=== PATIENT | female | born 1965 | race Caucasian/White ===

== ENCOUNTER 2017-12-12 22:03 | Inpatient (IN) ==
[2017-12-12] MEDS ORDERED: MethylPREDNISolone Sod Succinate Inj 125 MG/2 ML Vial IV.PUSH ONE (22:23)
[2017-12-12 22:39] LABS: Baso # (Auto) 0.2 th/mm3 (0.0-0.2); Baso % (Auto) 1.2 % (0.0-2.0); Eos % (Auto) 0.1 % (0.0-4.0); Hematocrit 38.9 % (35.0-46.0); Hemoglobin 12.6 gm/dL (11.6-15.3); Lymph # (Auto) 1.4 th/mm3 (1.0-4.8); Mean Corpuscular HGB Conc 32.3 % (32.0-36.0); Mean Corpuscular Hemoglobin 25.6 pg (27.0-34.0); Mean Corpuscular Volume 79.1 fL (80.0-100.0); Mean Platelet Volume 10.2 fL (7.0-11.0); Mono # (Auto) 0.7 th/mm3 (0.0-0.9); Mono % (Auto) 4.5 % (0.0-8.0); Neut # (Auto) 13.1 th/mm3 (1.8-7.7); Neut % (Auto) 85.2 % (16.0-70.0); Platelet Count 231 th/mm3 (150-450); Red Blood Count 4.92 mil/mm3 (4.00-5.30); Red Cell Distribution Width 18.6 % (11.6-17.2); White Blood Count 15.4 th/mm3 (4.0-11.0)
--- NOTE | 2017-12-12 22:42 | XR ---
EXAM DATE: 12/12/2017 10:35 PM EDT AGE/SEX: 52 years / Female INDICATIONS: Short of breath. CLINICAL DATA: This is the patient's initial encounter. Patient reports that signs and symptoms have been present for 1 day and indicates a pain score of 0/10. MEDICAL/SURGICAL HISTORY: None. None. COMPARISON: No prior exams available for comparison. FINDINGS: The lungs are clear without infiltrate, nodule, or mass. There is no appreciable pleural effusion for technique. Heart and mediastinum are unremarkable. CONCLUSION: No acute cardiopulmonary disease. Electronically signed by: Hermilo Dutton MD 12/12/2017 10:40 PM EDT
[2017-12-12 22:45] LABS: Chloride 110 meq/L (98-107); Potassium 3.7 meq/L (3.5-5.1); Sodium 142 meq/L (136-145)
[2017-12-12 22:48] LABS: Calcium 8.5 mg/dL (8.5-10.1)
[2017-12-12 22:49] LABS: Albumin 3.9 g/dL (3.4-5.0); Anion Gap 8 meq/L (5-15); Blood Urea Nitrogen 12 mg/dL (7-18); Carbon Dioxide 23.8 meq/L (21.0-32.0); Glucose,Random 102 mg/dL (74-106)
[2017-12-12 22:52] LABS: Alanine Aminotransferase 17 U/L (10-53); Aspartate Aminotransferase 17 U/L (15-37); Glomerular Filtration Rate 80 mL/min (>89)
[2017-12-12 22:54] LABS: Total Protein 7.7 g/dL (6.4-8.2)
[2017-12-12 22:55] LABS: Alkaline Phosphatase 104 U/L (45-117)
--- NOTE | 2017-12-12 22:57 | ED ---
HPI General Chief Complaint: Respiratory Symptoms Stated Complaint: SOB Time Seen by Provider: 12/12/17 22:23 Source: patient Mode of arrival: ambulatory Limitations: no limitations History of Present Illness MD Complaint: shortness of breath Onset (ago): minute(s) Severity: severe Consistency/Duration: constant Relieving factors: nothing Exacerbating factors: nothing Known history of: COPD Associated symptoms: fever, cough and sputum production Treatment prior to arrival: bronchodilator (neb given at Urgent Care this evening. good relief. symptoms recurred and were acutely worse just [employer].) Related Data Home oxygen amount: none Home Medications Medication Instructions Recorded Confirmed albuterol sulfate [Ventolin HFA] 2 puff INHALATION Q4-6H PRN 12/12/17 12/12/17 alendronate 70 mg PO QWEEK 12/12/17 12/12/17 alprazolam [Xanax] 2 mg PO BID 12/12/17 12/12/17 aspirin 81 mg PO DAILY 12/12/17 12/12/17 bisoprolol-hydrochlorothiazide 1 tab PO DAILY 12/12/17 12/12/17 [Ziac] cetirizine [Zyrtec] 5 mg PO DAILY 12/12/17 12/12/17 estropipate 1.5 mg PO DAILY 12/12/17 12/12/17 furosemide 40 mg PO DAILY 12/12/17 12/12/17 hydroxyzine HCl 25 mg PO QID PRN 12/12/17 12/12/17 meloxicam 15 mg PO DAILY 12/12/17 12/12/17 potassium chloride 20 meq PO DAILY 12/12/17 12/12/17 quetiapine [Seroquel] 300 mg PO BID 12/12/17 12/12/17 Allergies Allergy/AdvReac Type Severity Reaction Status Date / Time cephalexin [From Keflex] Allergy Rash, Verified 12/12/17 22:15 Generalized oxcarbazepine Allergy Itching Verified 12/12/17 22:15 [From Trileptal] codeine AdvReac Hallucinati Verified 12/12/17 22:15 ons oxycodone [From Percocet] AdvReac Nausea/Vomi Verified 12/12/17 22:15 ting propoxyphene AdvReac Nausea/Vomi Verified 12/12/17 22:15 [From Darvocet-N] ting Review of Systems ROS: all other systems reviewed are negative [facility] Medical History Medical History Anxiety (Acute) Bipolar 1 disorder (Acute) Depression (Acute) Dissociative identity disorder (Acute) Fibromyalgia (Acute) Frequent headaches (Acute) H/O: hysterectomy (Acute) Hypertension (Acute) Hypokalemia (Acute) PTSD (post-traumatic stress disorder) (Acute) Polycythemia vera (Acute) Surgical History Surgical History History of appendectomy (Acute) History of breast implant (Acute) Hx of tonsillectomy (Acute) Social History Social History Substance History: No History of Abuse Smoking Status: Current every day smoker Tobacco Type: Cigarettes How Often Do You Have a Drink Containing Alcohol: Never Recent Travel in [facility] within the Last 8 Weeks: No Recent Out of Country Travel within the Last 8 Weeks: No Immunization History Tetanus Immunization: >5 Years Hx Influenza Vaccine This Season: No Exam Const General: cooperative, healthy appearing, well developed, well groomed and acute distress Orientation: alert, awake and oriented x3 HENMT Head: normal to inspection, normocephalic and atraumatic Eyes Alignment and Position: alignment normal Conjunctivae: conjunctivae normal Sclera: sclerae normal EOM: EOM intact bilaterally Neck Neck: normal visual inspection and full ROM Chest Chest: abnormal inspection of the chest (Use of accessory muscles) Resp Effort & Inspection: labored (Able to speak 1-2 syllables between breaths) Auscultation: clear to auscultation bilaterally, diminished lung sounds and wheezes Cardio Rate: regular rate Rhythm: regular rhythm GI Inspection: normal to inspection Palpation: soft Back/Spine/Pelvis Cervical Spine: cervical ROM normal Thoracic/Lumbar Spine: thoraco-lumbar ROM normal Skin General: no rashes or lesions noted and turgor normal Neuro General: alert, awake, oriented x3, moves all extremities and CN's II-XI intact bilaterally Extrem General: normal to inspection and full ROM Psych Appearance: grossly normal Mental Status: mental status grossly normal Speech and Movement: speech and movement normal Mood: congruent mood Affect: normal affect Attitude: cooperative Thought Process: normal Thought Content: normal Judgment: judgment good Course Hospital Course: Patient is markedly improved following neb treatments and Solu-Medrol. However , she still has an oxygen requirement. She is currently on 5 L cannula with an oxygen saturation of 90%. She is not having any respiratory distress at this time. The results of her CT have been discussed with her. She has had a previous rash with Keflex. I will give her Rocephin and watch her for rash. She has also been given Zithromax. Consultations Consultation #1: Dr. More Time: 00:59 Initial Documented Vital Signs Temperature 98.5 F 12/12/17 22:18 Pulse Rate 112 H 12/12/17 22:18 Respiratory Rate 27 H 12/12/17 22:18 Blood Pressure 166/79 H 12/12/17 22:18 Pulse Oximetry 82 L 12/12/17 22:18 Last Documented Vital Signs Temperature 98.7 F 12/13/17 00:00 Pulse Rate 113 H 12/13/17 00:00 Respiratory Rate 25 H 12/13/17 00:00 Blood Pressure 152/84 H 12/13/17 00:00 Pulse Oximetry 90 L 12/13/17 00:00 Critical Care Time Critical Care Time: Yes Total Critical Care Time: 45 Attestation: Time to perform other separately billable procedures was not included in the critical care time. My time did not include minutes spent treating any other patients simultaneously or on activities that did not directly contribute to the patient's treatment. The services I provided to this patient were to treat and/or prevent clinically significant deterioration due to respiratory distress, dyspnea with hypoxia I provided critical care services requiring my management, as noted below: Chart data review, documentation time, medication orders and management, vital sign assessments/reviewing monitor data, ordering and reviewing lab tests, ordering and interpreting/reviewing x-rays and diagnostic studies, care of the patient and discussion of the patient with the admitting physicians Medical Decision Making MDM Narrative Medical decision making narrative: This patient presents ambulatory with the chief complaint of acute dyspnea. She states that she started feeling ill allergy type symptoms. Her symptoms were worse today prompting her to go to the urgent care center for treatment. She reports that she was given a nebulizer treatment and encouraged to come to the emergency department for further treatment. She states she felt much better so she went home. However, her symptoms became acutely worse and much more severe just prior to presentation. On initial presentation, this patient was in respiratory distress. She was immediately given duo nebs 3. She has been placed on supplemental oxygen. She reports that she is much better now. Dyspnea workup is in process including a d-dimer and BNP. She has been given Solu-Medrol. Medical Screen Exam Complete: Yes Emergency Medical Condition: Yes Differential Diagnosis Differential Diagnosis: Differential diagnosis of dyspnea includes but is not limited to congestive heart failure, pneumonia, wheezing, pneumothorax, pulmonary embolism Medical Records Medical records reviewed: Yes I reviewed the patient's medical records. Underlying medical problems include hypertension, polycythemia vera, psychiatric issues and a new diagnosis of COPD Lab Data Lab results reviewed: Yes I reviewed the patient's lab results. Result diagrams: 12/12/17 22:27 12/12/17 22:27 Lab Results 12/12/17 12/12/17 12/12/17 Range/Units 22:27 22:27 22:27 CBC w Diff Auto diff final WBC 15.4 H (4.0-11.0) th/mm3 RBC 4.92 (4.00-5.30) mil/mm3 Hgb 12.6 (11.6-15.3) gm/dL Hct 38.9 (35.0-46.0) % MCV 79.1 L (80.0-100.0) fL MCH 25.6 L (27.0-34.0) pg MCHC 32.3 (32.0-36.0) % RDW 18.6 H (11.6-17.2) % Plt Count 231 (150-450) th/mm3 MPV 10.2 (7.0-11.0) fL Neut % (Auto) 85.2 H (16.0-70.0) % Lymph % (Auto) 9.0 (9.0-44.0) % [place] % (Auto) 4.5 (0.0-8.0) % Eos % (Auto) 0.1 (0.0-4.0) % Baso % (Auto) 1.2 (0.0-2.0) % Neut # (Auto) 13.1 H (1.8-7.7) th/mm3 Lymph # (Auto) 1.4 (1.0-4.8) th/mm3 [place] # (Auto) 0.7 (0.0-0.9) th/mm3 Eos # (Auto) 0.0 (0.0-0.4) th/mm3 Baso # (Auto) 0.2 (0.0-0.2) th/mm3 WBC Differential . Differential Comment . D-Dimer Quant (PE/DVT) 0.52 H (0.00-0.50) mg/L FEU Sodium 142 (136-145) meq/L Potassium 3.7 (3.5-5.1) meq/L Chloride 110 H (98-107) meq/L Carbon Dioxide 23.8 (21.0-32.0) meq/L Anion Gap 8 (5-15) meq/L BUN 12 (7-18) mg/dL Creatinine 0.76 (0.50-1.00) mg/dL Estimated GFR 80 L (>89) mL/min Random Glucose 102 (74-106) mg/dL Calcium 8.5 (8.5-10.1) mg/dL Total Bilirubin 0.3 (0.2-1.0) mg/dL AST 17 (15-37) U/L ALT 17 (10-53) U/L Alkaline Phosphatase 104 (45-117) U/L Troponin I Less than 0.02 L (0.02-0.05) ng/mL B-Natriuretic Peptide (0-100) pg/mL Total Protein 7.7 (6.4-8.2) g/dL Albumin 3.9 (3.4-5.0) g/dL 12/12/17 Range/Units 22:27 CBC w Diff WBC (4.0-11.0) th/mm3 RBC (4.00-5.30) mil/mm3 Hgb (11.6-15.3) gm/dL Hct (35.0-46.0) % MCV (80.0-100.0) fL MCH (27.0-34.0) pg MCHC (32.0-36.0) % RDW (11.6-17.2) % Plt Count (150-450) th/mm3 MPV (7.0-11.0) fL Neut % (Auto) (16.0-70.0) % Lymph % (Auto) (9.0-44.0) % [place] % (Auto) (0.0-8.0) % Eos % (Auto) (0.0-4.0) % Baso % (Auto) (0.0-2.0) % Neut # (Auto) (1.8-7.7) th/mm3 Lymph # (Auto) (1.0-4.8) th/mm3 [place] # (Auto) (0.0-0.9) th/mm3 Eos # (Auto) (0.0-0.4) th/mm3 Baso # (Auto) (0.0-0.2) th/mm3 WBC Differential Differential Comment D-Dimer Quant (PE/DVT) (0.00-0.50) mg/L FEU Sodium (136-145) meq/L Potassium (3.5-5.1) meq/L Chloride (98-107) meq/L Carbon Dioxide (21.0-32.0) meq/L Anion Gap (5-15) meq/L BUN (7-18) mg/dL Creatinine (0.50-1.00) mg/dL Estimated GFR (>89) mL/min Random Glucose (74-106) mg/dL Calcium (8.5-10.1) mg/dL Total Bilirubin (0.2-1.0) mg/dL AST (15-37) U/L ALT (10-53) U/L Alkaline Phosphatase (45-117) U/L Troponin I (0.02-0.05) ng/mL B-Natriuretic Peptide 50 (0-100) pg/mL Total Protein (6.4-8.2) g/dL Albumin (3.4-5.0) g/dL Imaging Data Attestation: I personally reviewed and interpreted this imaging study as follows : My impression: Clear lungs Radiologist's impression: Chest X-Ray 12/12/17 22:23 CONCLUSION: No acute cardiopulmonary disease. Chest CTA 12/12/17 23:19 CONCLUSION: 1. No pulmonary embolus. 2. Patchy pneumonia as described, largest and most conspicuous in the right middle lobe. 3. Mild to moderate emphysema. ECG Data EKG Prior to Arrival: No Attestation: I personally reviewed and interpreted this ECG as follows: (EKG shows sinus tachycardia at 104. No acute STT wave changes.) Discharge Plan Discharge Disposition Patient Disposition: 30 Still Patient Discharge Details Diagnosis: Acute respiratory distress, Pneumonia Physicians Team ED Provider: Mohini Carey Primary Care Provider: Emeka Ramos Rxs /Orders / Referrals /Forms Prescriptions: No Action furosemide 40 mg Tablet 40 mg PO DAILY RF: 0 quetiapine [Seroquel] 300 mg Tablet 300 mg PO BID RF: 0 cetirizine [Zyrtec] 10 mg Tablet 5 mg PO DAILY RF: 0 meloxicam 15 mg Tablet 15 mg PO DAILY RF: 0 alendronate 70 mg Tablet 70 mg PO QWEEK RF: 0 estropipate 0.75 mg Tablet 1.5 mg PO DAILY RF: 0 bisoprolol-hydrochlorothiazide [Ziac] 2.5-6.25 mg Tablet 1 tab PO DAILY RF: 0 aspirin 81 mg Tablet,Chewable 81 mg PO DAILY RF: 0 hydroxyzine HCl 25 mg Tablet 25 mg PO QID PRN (Reason: Anxiety) RF: 0 alprazolam [Xanax] 2 mg Tablet 2 mg PO BID RF: 0 albuterol sulfate [Ventolin HFA] 90 mcg/actuation Hfa Aerosol Inhaler 2 puff INHALATION Q4-6H PRN (Reason: Shortness Of Breath) RF: 0 potassium chloride 20 mEq Tablet Extended Release 20 meq PO DAILY RF: 0 Status ED Status: Pending Admission
[2017-12-12] MEDS ORDERED: Azithromycin Inj 500 MG in Sodium Chlor 0.9% Inj 250 ML IV.SIG ONE (23:17)
--- NOTE | 2017-12-12 23:59 | CT ---
EXAM DATE: 12/12/2017 11:48 PM EDT AGE/SEX: 52 years / Female INDICATIONS: Chest pain, shortness of breath. CLINICAL DATA: This is the patient's initial encounter. Patient reports that signs and symptoms have been present for 1 day and indicates a pain score of 4/10. MEDICAL/SURGICAL HISTORY: Hypertension. Breast augmentation. Tonsillectomy. RADIATION DOSE: 11.78 CTDI (mGy) COMPARISON: POI, CT CHEST W/O CONTRAST, 10/20/2017. . TECHNIQUE: Volumetric scanning was performed using a multi-row detector CT scanner during bolus infu hussein of 74 ml Omnipaque 350 (iohexol) nonionic water-soluble contrast as a single exam dose. The timo a was post processed with a variety of visualization algorithms including full volume maximum intensi ty projection and sliding thin slab reformation. Using automated exposure control and adjustment of the mA and/or kV according to patient size, radiation dose was kept as low as reasonably achievable t o obtain optimal diagnostic quality images. DICOM format image data is available electronically for review and comparison. FINDINGS: No pulmonary embolus is demonstrated. An approximately 4 cm area of focal parenchymal consolidation is seen in the right middle lung. Simil ar but smaller/milder findings are seen in the lingular division of the left upper lobe. Widely scatt ered sub-4 mm bilateral pulmonary nodules are unchanged. Mild dependent atelectasis of both bases. Th ere is mild to moderate emphysema. No pleural effusion or pneumothorax. Heart size stable, within normal limits. Scattered subcentimeter subcarinal and AP window mediastinal lymph nodes. Nothing clearly pathologic. CONCLUSION: 1. No pulmonary embolus. 2. Patchy pneumonia as described, largest and most conspicuous in the right middle lobe. 3. Mild to moderate emphysema. Electronically signed by: Lake Cullen MD 12/12/2017 11:57 PM EDT
[2017-12-13] MEDS ORDERED: Bisacodyl 10 MG Supp RECTAL PRN (00:57)
[2017-12-13] MEDS ORDERED: Acetaminophen 325 MG Tablet PO PRN (00:57)
[2017-12-13] MEDS ORDERED: MethylPREDNISolone Sod Succinate Inj 40 MG/ML Vial IV.PUSH SCH (05:00)
[2017-12-13 06:49] LABS: ABG Base Excess -1.9 mmol/L (-2-2); ABG PCO2 39 mmHg (38-42); ABG PO2 52 mmHg (61-120)
[2017-12-13] MEDS ORDERED: Vancomycin Consult Pharmacy OTHER PRN (07:21)
[2017-12-13] MEDS ORDERED: Magnesium Oxide 400 MG Tablet PO PRN (07:24)
[2017-12-13] MEDS ORDERED: Potassium Chloride 25 MEQ Effervescent Tablet PO PRN (07:24)
[2017-12-13] MEDS ORDERED: Dextrose 50% in Water 50 ML Vial IV.PUSH PRN (07:24)
[2017-12-13] MEDS ORDERED: Potassium Chlor 40 mEq Premix 40 MEQ/100 ML PIGGYBACK IV.SIG PRN ×2 (07:24)
[2017-12-13] MEDS ORDERED: Magnesium Sulfate Inj 4 GM in Sodium Chlor 0.9% Inj 92 ML IV.SIG PRN (07:24)
[2017-12-13] MEDS ORDERED: Magnesium Sulfate Inj 2 GM in Sodium Chlor 0.9% Inj 96 ML IV.SIG PRN (07:24)
[2017-12-13] MEDS ORDERED: Sodium Phosphate Inj 30 MMOL in Sodium Chlor 0.9% Inj 250 ML IV.SIG PRN (07:24)
[2017-12-13] MEDS ORDERED: Potassium Chlor 20 mEq Premix 20 MEQ/100 ML PIGGYBACK IV.SIG PRN ×2 (07:24)
[2017-12-13] MEDS ORDERED: Potassium Phosphate Inj 30 MMOL in Sodium Chlor 0.9% Inj 250 ML IV.SIG PRN (07:24)
[2017-12-13] MEDS ORDERED: Potassium Phosphate 500 MG Soluble Tablet PO PRN ×2 (07:24)
--- NOTE | 2017-12-13 07:37 | P.CONCC ---
History of Present Illness Service: Critical care medicine Consult date: 12/13/17 Requesting Physician: Jamilah More Reason for Consult: Respiratory failure, acute Primary Care Provider: Emeka Rmaos MD Family Provider: Emeka Ramos MD Chief Complaint: Shortness of breath History of Present Illness: This is a 52-year-old female. Date of admission 12/12/2017. Date of consultation 12/13/2017. Past medical history includes COPD, asthma which he describes as seasonal allergies, bipolar disorder, posttraumatic stress disorder , depression, fibromyalgia, hypertension, hyperlipidemia, osteoporosis and chronic benzodiazepine use. She also has polycythemia vera she is also on hormone replacement therapy. Patient originally presented to urgent care yesterday for shortness of breath. She received aerosolized therapy improved and went home. She presented to [facility] of late or last night with worsening symptoms of dyspnea, shortness of breath. In the ED, patient's received chest x-ray and received multiple bronchodilator therapy and intravenous methylprednisolone succinate. At that time, patient was on 5 L nasal cannula with an oxygen saturation of 90%. She is not having any respiratory distress at this time. She received a CT pulmonary, due to an abnormal d-dimer. Pneumonia was noted in the right middle lobe and lingula on the left side. She received ceftriaxone and azithromycin. She was admitted to the hospital service. Again, CT pulmonary angiogram revealed no central pulmonary rales. Small bilateral pulmonary nodules. Infiltrates by the left upper lobe/lingula and right middle lobe. She was treated with bronchodilator therapy. Overnight, transition from 5 L nasal cannula to 100% nonrebreather was transferred to the ICU. I evaluate the patient at that time in room 8401. She is currently awake alert and oriented 3. Will attempt aggressive albuterol aerosol therapies in place on BiPAP short-term. Pulmonology will be consulted. She states she does not have a director [place]. Review of Systems Constitutional: Reports body ache(s), Reports chills, Reports excessive sweating , Reports fatigue, Reports fever(s), Reports headache(s), Reports lack of energy , Reports malaise, Reports night sweats, Denies anorexia, Denies daytime sleepiness, Denies weight gain, Denies weight loss Eyes: Denies blind spots, Denies blurry vision Ears, Nose, Mouth, and Throat: Reports bad breath, Reports dry mouth, Reports nasal congestion, Denies abnormal hearing, Denies bleeding gums Cardiovascular: Reports shortness of breath, Reports shortness of breath with activity, Reports shortness of breath when lying down, Denies chest pain, Denies chest pain at rest Respiratory: Reports change in phlegm color, Reports chest congestion, Reports cough, Reports shortness of breath, Reports shortness of breath with activity, Denies coughing up blood Gastrointestinal: Denies abdominal pain, Denies loose stools, Denies nausea, Denies vomiting blood Genitourinary: Denies dribbling after urination Musculoskeletal: Denies abnormal walking, Denies back pain Skin/Breast: Denies acne, Denies bleeding lesions, Denies boil Neurologic: Denies abnormal hearing, Denies convulsions Psychiatric: Reports anxiety, Reports depression, Denies confusion Endocrine: Reports cold intolerance, Reports excessive sweating Hematologic/Lymphatic: Denies easy bleeding Allergic/Immunologic: Reports GI upset with certain foods, Reports seasonal runny nose PMFSH - History History Provided By: Patient - Medical History Medical History: Medical History (Last Updated 12/13/17 @ 07:35 by Irja Hernandez MD) Anxiety Asthma Bipolar 1 disorder Depression Dissociative identity disorder Emphysema lung Fibromyalgia Frequent headaches History of benzodiazepine use Hormone replacement therapy (HRT) Hypertension Hypokalemia Osteoporosis PTSD (post-traumatic stress disorder) Polycythemia vera Pulmonary nodule - Surgical History Surgical History: Surgical History (Last Reviewed 12/13/17 @ 07:32 by Iraj Hernandez MD) H/O: hysterectomy History of appendectomy History of breast implant Hx of tonsillectomy - Family History Family History: Family History (Last Updated 12/13/17 @ 07:33 by Iraj Hernandez MD) Other Family history non-contributory - Social History I have reviewed the patient's Social History: Yes - Tobacco History Second Hand Smoke Exposure: No Tobacco Use In Past 30 Days: No Smoking Status: Former smoker Tobacco Type: Cigarettes - Alcohol History How Often Do You Have a Drink Containing Alcohol: Monthly or less - Substance Use History Substance History: No History of Abuse - Travel History Recent Travel in the [place] Within the Last 8 Weeks: No Recent Travel Out of the Country Within the Last 8 Weeks: No - Immunization History Tetanus Immunization: >5 Years Hx Influenza Vaccine This Season: No Medications and Allergies Active Medications: Active Medications Acetaminophen (Tylenol) 650 mg PO Q4H PRN PRN Reason: Temp > 100.4 Al Hydroxide/Mg Hydroxide (Milk Of Jenn Cardoza) 30 ml PO Q12H PRN PRN Reason: Mild Constipation Albuterol (Albuterol Neb (Prn)) 2.5 mg NEB Q2HR NEB PRN PRN Reason: SHORTNESS OF BREATH/WHEEZING Albuterol (Duoneb Neb (Prn)) 1 ampul NEB Q4HR NEB WARNER Alprazolam (Xanax) 2 mg PO BID WARNER Aspirin (Aspirin Chew) 81 mg PO DAILY WARNER Bisacodyl (Dulcolax Supp) 10 mg RECTAL DAILY PRN PRN Reason: SEVERE CONSITIPATION Budesonide/Formoterol Fumarate (Symbicort 160/4.5 Mcg Inh) 2 puff INH BID WARNER Chlorhexidine Gluconate (Chlorhexidine 2% Cloth) 3 pack TOPICAL DAILY@0400 WARNER Stop: 12/19/17 03:59 Chlorhexidine Gluconate (Chlorhexidine 2% Cloth) 3 pack TOPICAL DAILY@0400 PRN PRN Reason: Extra cloth needed Stop: 12/19/17 03:59 Furosemide (Lasix) 40 mg PO DAILY WARNER Guaifenesin (Mucinex Er) 600 mg PO BID WARNER Heparin Sodium (Porcine) (Heparin Inj) 5,000 units SQ Q12H WARNER Levofloxacin/Dextrose (Levaquin 750 Mg Premix Inj) 150 mls @ 100 mls/hr IV.SIG Q24H WARNER Aztreonam 2 gm/ Sodium (Chloride) 100 mls @ 200 mls/hr IV.SIG Q8H WARNER Magnesium Sulfate 4 gm/ Sodium (Chloride) 100 mls @ 50 mls/hr IV.SIG UNSCH PRN PRN Reason: For Magnesium 0.9 - 1.1 mg/dL Magnesium Sulfate 2 gm/ Sodium (Chloride) 100 mls @ 50 mls/hr IV.SIG UNSCH PRN PRN Reason: For Magnesium 1.2 - 1.6 mg/dL Potassium Chloride (Kcl 40 Meq Premix Inj) 40 meq in 100 mls @ 25 mls/hr IV.SIG Q2H PRN PRN Reason: For Potassium 2.8 - 3.2 mEq/L Potassium Chloride (Kcl 20 Meq Premix Inj) 20 meq in 100 mls @ 50 mls/hr IV.SIG Q2H PRN PRN Reason: For Potassium 3.3 - 3.5 mEq/L Potassium Chloride (Kcl 40 Meq Premix Inj) 40 meq in 100 mls @ 25 mls/hr IV.SIG UNSCH PRN PRN Reason: For Potassium 3.3 - 3.5 mEq/L Potassium Chloride (Kcl 20 Meq Premix Inj) 20 meq in 100 mls @ 50 mls/hr IV.SIG Q2H PRN PRN Reason: For Potassium 2.8 - 3.2 mEq/L Potassium Phosphate 30 mmol/ (Sodium Chloride) 260 mls @ 42 mls/hr IV.SIG UNSCH PRN PRN Reason: SEE LABEL COMMENTS Sodium Phosphate 30 mmol/ (Sodium Chloride) 260 mls @ 42 mls/hr IV.SIG UNSCH PRN PRN Reason: For Phosphorus < 2.5 mg/dL Lactulose (Lactulose Liq) 30 ml PO DAILY PRN PRN Reason: SEVERE CONSITIPATION Magnesium Oxide (Mag-Ox) 800 mg PO UNSCH PRN PRN Reason: For Magnesium 1.2 - 1.6 mg/dL Methylprednisolone Sodium Succinate (Solumedrol Inj) 60 mg IV.PUSH Q8H [facility] Ondansetron HCl (Zofran Inj) 4 mg IV.PUSH Q6H PRN PRN Reason: NAUSEA OR VOMITING Pantoprazole Sodium (Protonix Inj) 40 mg IV.PUSH DAILY [facility] Pt Own Ziac 2.5 / 6. (25 Mg) 0 each PO DAILY [facility] Pharmacy Profile Note (Vancomycin Consult Pharmacy) 1 each OTHER UNSCH PRN PRN Reason: Pharmacy to dose Potassium Bicarb/Potassium Chloride (K-Lyte Cl Eff) 50 meq PO UNSCH PRN PRN Reason: For Potassium 3.3 - 3.5 mEq/L Potassium Chloride (K-Dur) 20 meq PO DAILY [facility] Potassium Phosphate (K-Phos Original) 2,000 mg PO Q4H PRN PRN Reason: Phosphorus Less Than 2.5 mg/dL Potassium Phosphate (K-Phos Original) 2,000 mg PO UNSCH PRN PRN Reason: SEE LABEL COMMENTS Quetiapine Fumarate (Seroquel) 300 mg PO BID [facility] Senna/Docusate Sodium (Kinjal-Colace) 1 tab PO BID [facility] Sennosides (Senokot) 17.2 mg PO Q12H PRN PRN Reason: Moderate Constipation Sodium Chloride (Ns Flush) 2 ml IV.FLUSH PRN PRN PRN Reason: FLUSH AFTER USING IV ACCESS Sodium Chloride (Ns Flush) 2 ml IV.FLUSH BID WARNER Sodium Chloride (Ns Flush) 2 ml IV.FLUSH PRN PRN PRN Reason: FLUSH AFTER USING IV ACCESS Allergies Allergy/AdvReac Type Severity Reaction Status Date / Time cephalexin [From Keflex] Allergy Rash, Verified 12/12/17 22:15 Generalized oxcarbazepine Allergy Itching Verified 12/12/17 22:15 [From Trileptal] codeine AdvReac Hallucinati Verified 12/12/17 22:15 ons oxycodone [From Percocet] AdvReac Nausea/Vomi Verified 12/12/17 22:15 ting propoxyphene AdvReac Nausea/Vomi Verified 12/12/17 22:15 [From Darvocet-N] ting Home Medications Medication Instructions Recorded Confirmed Type albuterol sulfate [Ventolin HFA] 2 puff INHALATION Q4-6H PRN 12/12/17 12/12/17 History alendronate 70 mg PO QWEEK 12/12/17 12/12/17 History alprazolam [Xanax] 2 mg PO BID 12/12/17 12/12/17 History aspirin 81 mg PO DAILY 12/12/17 12/12/17 History bisoprolol-hydrochlorothiazide 1 tab PO DAILY 12/12/17 12/12/17 History [Ziac] cetirizine [Zyrtec] 5 mg PO DAILY 12/12/17 12/12/17 History estropipate 1.5 mg PO DAILY 12/12/17 12/12/17 History furosemide 40 mg PO DAILY 12/12/17 12/12/17 History hydroxyzine HCl 25 mg PO QID PRN 12/12/17 12/12/17 History meloxicam 15 mg PO DAILY 12/12/17 12/12/17 History potassium chloride 20 meq PO DAILY 12/12/17 12/12/17 History quetiapine [Seroquel] 300 mg PO BID 12/12/17 12/12/17 History Physical Exam Vital signs: Vital Signs 12/12/17 22:18 12/12/17 22:20 12/12/17 22:26 Temperature 98.5 F Pulse Rate 112 H 104 H Respiratory Rate 27 H 28 H Blood Pressure 166/79 H Pulse Oximetry 82 L 93 L 93 L 12/12/17 22:57 12/12/17 23:46 12/13/17 00:00 Temperature 98.7 F Pulse Rate 105 H 108 H 113 H Respiratory Rate 22 24 25 H Blood Pressure 162/85 H 158/69 H 152/84 H Pulse Oximetry 94 L 90 L 89 L 12/13/17 03:26 12/13/17 03:31 12/13/17 03:40 Temperature 97.8 F Pulse Rate 109 H 112 H Respiratory Rate 20 21 Blood Pressure 131/68 Pulse Oximetry 89 L 89 L 12/13/17 06:46 Temperature Pulse Rate 99 H Respiratory Rate 24 Blood Pressure Pulse Oximetry Intake & Output 12/12/17 12/13/17 12/13/17 18:59 06:59 18:59 Intake Total 350 / 350 Balance 350 / 350 Weight 70.4 kg Intake: IV 350 / 350 Azithromycin Inj 500 MG In NS 250 / 250 Inj 250 ML @ 500 mls/hr IV.SIG ONCE ONE Rx#:[id number] Rocephin Inj 2,000 MG In NS Inj 100 / 100 100 ML @ 200 mls/hr IV.SIG ONCE ONE Rx#:[id number] Other: Weight On Admission 31.751 kg - Constitutional mild distress, diaphoretic - Routine HEENT Exam Head: Present: normocephalic, atraumatic Eye: Present: EOMI, PERRL, normal accommodation ENT: Present: mucous membranes moist - Routine Neck Exam Present: supple, full ROM. Absent: JVD, carotid bruit - Routine Respiratory Exam Present: accessory muscle use, prolonged expiratory phase, respiratory distress , wheezes, crackles, diminished air movement. Absent: rales - Routine Cardiovascular Exam Present: RRR, S1, S2. Absent: rubs, S3, S4 - Routine Abdominal Exam Present: soft, normoactive bowel sounds. Absent: rebound - Routine Exam Patient deferred: external exam, groin exam, perineal exam - Routine Extremities Exam Absent: cyanosis, clubbing, edema - Routine Skin Exam Present: intact, warm - Routine Neurological Exam Present: alert, oriented X3, CN II-XII intact. Absent: sensory deficit, motor deficit - Detailed Neurological Exam: Coma Scale Eye Opening: Spontaneous Verbal Response: Oriented Motor Response: Obey commands [place] Coma Scale Total: 15 - Routine Psychiatric Exam Present: normal affect Septic Shock Reassessment Septic shock perfusion: reassessment completed Assessment and Plan - Assessment and Plan Plan: Neuro/Psych: Bipolar disorder NOS Depression chronic benzodiazepine use Fibromyalgia Allergic rhinitis Previously on hydroxyzine 25 mg 4 times daily, Quetiapine 300 mg twice daily for depression/bipolar disorder Holding meloxicam 15 mg daily Continue alprazolam 2 mg twice daily Currently holding cetirizine 5 mg daily CV: Essential hypertension Continue aspirin 81 mg daily On bisoprolol/hydrochlorothiazide 2.5/6.25 mg daily at home for hypertension. On furosemide 40 mg daily at home. Currently on hold. Resume likely in a.m. With potassium chloride supplementation 20 mEq Check 2D echo\ As needed Nitropaste/nicardipine drip for hypertension. Resp: Acute hypoxic hypercapnic respiratory failure secondary to meeting acquired pneumonia History of emphysema/tobaccoism History of mild intermittent asthma -secondary to seasonal allergies Previously on 100% nonrebreather. We will transferred over to BiPAP with continuous albuterol aerosols Albuterol/ipratropium aerosols every 4 hours with albuterol aerosols every 2 hours as needed for dyspnea Salmeterol/formoterol 160/4.5 2 puffs twice daily Methylprednisolone succinate 60 mg IV every 8 hour Recheck ABG at 10:00 Pulmonary consultation See antibiotics below infectious disease section At high risk for intubation CT pulmonary angiogram revealed no central pulmonary embolism. Right middle lobe infiltrate. Left upper lobe/lingular infiltrate. Bilateral less than 4 mm pulmonary nodules. Follow-up chest x-ray in a.m. GI: Advance diet as tolerated when off BiPAP Pantoprazole for GI prophylaxis Docusate sodium/senna 1 tablet twice daily for bowel regimen : Kelly catheter if indicated for accurate I's and O's in a critical patient STAND UP COMEDIAN: History of hysterectomy Hormone replacement therapy Patient is on estropipate 1.5 mg daily at home. Currently on hold Endo: Sliding scale insulin Accu-Cheks to maintain euglycemia/Accu-Cheks before meals at bedtime with low regimen of aspirin insulin while on steroids Check TSH Renal: Creatinine currently within normal limits Monitor urine output Accurate I's and O's Heme: Polycythemia vera Microcytosis Leukocytosis Monitor CBC daily. Follow trends. No indication for transfusion of blood products at this time ID: Initially treated with ceftriaxone and Zithromax in the ED. Currently on vancomycin, aztreonam and levofloxacin. Blood cultures 2 performed. Results pending Sputum pending. Pneumococcal and Legionella urinary antigens. Chlamydia and mycoplasma pending. UA pending Influenza a and B- MSK: Osteoporosis//arthritis Currently holding alendronate 70 mg daily. PT evaluate and treat FEN: Chronic hypokalemia Previously on 20 mg potassium chloride daily. While on furosemide. Replace electrolytes per ICU likely protocol Access -Utilize peripheral IV. Central line if indicated Prophylaxis -GI-pantoprazole - -DVT SCD/heparin subcu Consult 35 minutes critical care time
[2017-12-13] MEDS ORDERED: niCARdipine Inj 25 MG in Sodium Chlor 0.9% Inj 240 ML IV.CONT PRN (07:53)
[2017-12-13 08:07] LABS: Baso # (Auto) 0.2 th/mm3 (0.0-0.2); Baso % (Auto) 1.7 % (0.0-2.0); Hematocrit 33.1 % (35.0-46.0); Hemoglobin 11.1 gm/dL (11.6-15.3); Lymph # (Auto) 0.3 th/mm3 (1.0-4.8); Lymph % (Auto) 3.2 % (9.0-44.0); Mean Corpuscular HGB Conc 33.7 % (32.0-36.0); Mean Corpuscular Hemoglobin 26.1 pg (27.0-34.0); Mean Corpuscular Volume 77.5 fL (80.0-100.0); Mono % (Auto) 0.3 % (0.0-8.0); Neut % (Auto) 94.8 % (16.0-70.0); Platelet Count 221 th/mm3 (150-450); Red Blood Count 4.27 mil/mm3 (4.00-5.30); Red Cell Distribution Width 19.3 % (11.6-17.2); White Blood Count 10.5 th/mm3 (4.0-11.0)
[2017-12-13 08:25] LABS: Chloride 110 meq/L (98-107); Potassium 3.6 meq/L (3.5-5.1); Sodium 141 meq/L (136-145)
[2017-12-13 08:28] LABS: Calcium 8.3 mg/dL (8.5-10.1)
[2017-12-13 08:29] LABS: Albumin 3.5 g/dL (3.4-5.0); Anion Gap 9 meq/L (5-15); Blood Urea Nitrogen 11 mg/dL (7-18); Carbon Dioxide 22.1 meq/L (21.0-32.0); Glucose,Random 179 mg/dL (74-106)
[2017-12-13 08:32] LABS: Alanine Aminotransferase 15 U/L (10-53); Aspartate Aminotransferase 15 U/L (15-37); Glomerular Filtration Rate 89 mL/min (>89)
[2017-12-13 08:34] LABS: Total Protein 7.1 g/dL (6.4-8.2)
[2017-12-13 08:35] LABS: Alkaline Phosphatase 91 U/L (45-117)
[2017-12-13 08:36] LABS: Creatine Kinase 319 U/L (26-192)
[2017-12-13] MEDS: Aztreonam Inj 2 GM in Sodium Chloride 0.9% Inj 100 ML IV.SIG SCH ×3 (08:41→23:41)
[2017-12-13] MEDS: guaiFENesin 600 MG ER Tablet PO SCH ×2 (08:42→20:47)
[2017-12-13] MEDS: Heparin - SQ 10,000 UNITS/ML Vial SQ SCH ×2 (08:45→19:47)
[2017-12-13] MEDS: Senna/Docusate Sodium 8.6/50 MG Tablet PO SCH ×2 (08:45→20:48)
[2017-12-13] MEDS: Insulin NovoLOG Aspart Correctional Sugar Inj SQ SCH ×4 (08:46→22:01)
[2017-12-13] MEDS: Furosemide 40 MG Tablet PO SCH (08:46)
[2017-12-13 08:49] LABS: CKMB Percent 2.8 % (0.0-4.0)
[2017-12-13] MEDS: Vancomycin Inj 1,000 MG in Sodium Chlor 0.9% Inj 250 ML IV.SIG SCH ×2 (08:58→20:50)
[2017-12-13] MEDS ORDERED: Non-Formulary Drug (Potassium Chloride [Potassium Chloride] 20 MEQ) PO SCH (09:00)
[2017-12-13] MEDS ORDERED: Pantoprazole Inj 40 MG Vial IV.PUSH SCH (09:00)
[2017-12-13] MEDS ORDERED: ZIAC PO SCH (09:00)
[2017-12-13 10:20] LABS: ABG PCO2 39 mmHg (38-42); ABG PO2 66 mmHg (61-120)
[2017-12-13] MEDS: Budesonide-Formoterol 160/4.5 MCG 6 GM Inhaler INH SCH ×2 (11:43→20:48)
[2017-12-13 15:12] LABS: Bilirubin,Urine Negative (Negative); Clarity,Urine Clear (Clear); Color,Urine Yellow (Yellw/Straw); Glucose,Urine (UA) Negative (Negative); Leukocyte Esterase,Urine Negative (Negative); Nitrite,Urine Negative (Negative); PH,Urine 5.5 (5.0-8.5); Specific Gravity,Urine Greater/Equal 1.030 (1.002-1.035); Urobilinogen,Urine 0.2 mg/dL (Less than 2)
[2017-12-13 15:29] LABS: Bacteria,Urine Occasional /hpf; Squamous Epithelial Cell,Urine Greater than 10 /hpf (0-5); WBC,Urine 0-5 /hpf (0-5)
--- NOTE | 2017-12-13 16:28 | ECHRPT ---
Indication: HEART FAILURE CONCLUSIONS Normal left ventricular size. Wall thickness is measured at the upper limits of normal. The left ventricular systolic function is normal with an estimated ejection fraction in the range of 55-60%. BP: / HR: Rhythm: Sinus MEASUREMENTS (Male / Female) Normal Values Technical Quality:Very technically difficult study 2D ECHO LV Diastolic Diameter PLAX 3.3 cm 4.2 - 5.9 / 3.9 - 5.3 cm LV Systolic Diameter PLAX 3.2 cm IVS Diastolic Thickness 1.0 cm 0.6 - 1.0 / 0.6 - 0.9 cm LVPW Diastolic Thickness 1.0 cm 0.6 - 1.0 / 0.6 - 0.9 cm LV Relative Wall Thickness 0.6 RV Internal Dim ED PLAX 2.5 cm LVOT Diameter 1.8 cm Aortic Root Diameter 2.9 cm LA Systolic Diameter LX 2.8 cm 3.0 - 4.0 / 2.7 - 3.8 cm M-MODE AV Cusp Separation MM 2.1 cm DOPPLER AV Peak Velocity 196.0 cm/s AV Peak Gradient 15.4 mmHg AV Mean Gradient 8.0 mmHg AV Velocity Time Integral 33.2 cm LVOT Peak Velocity 203.0 cm/s LVOT Peak Gradient 16.5 mmHg LVOT Velocity Time Integral 31.5 cm AV Area Cont Eq vti 2.4 cm AV Area Cont Eq pk 2.6 cm Mitral E Point Velocity 114.0 cm/s Mitral A Point Velocity 163.0 cm/s Mitral E to A Ratio 0.7 FINDINGS LEFT VENTRICLE Normal left ventricular size. Wall thickness is measured at the upper limits of normal. The left ventricular systolic function is normal with an estimated ejection fraction in the range of 55-60%. RIGHT VENTRICLE Normal right ventricular size and systolic function. LEFT ATRIUM The left atrial size is normal. RIGHT ATRIUM The right atrial size is normal. ATRIAL SEPTUM The interatrial septum not well visualized. AORTA The aortic root and proximal ascending aorta are not well visualized. MITRAL VALVE The mitral valve is not well visualized. AORTIC VALVE The aortic valve is not well visualized. TRICUSPID VALVE The tricuspid valve is not well visualized. PULMONARY VALVE The pulmonary valve is not well visualized. VESSELS The inferior vena cava is normal in size. PERICARDIUM No pericardial effusion. Barry Domingo MD, FACC, [facility] [place] (Electronically Signed) Final Date:13 December 2017 16:28
[2017-12-13] MEDS: MethylPREDNISolone Sod Succinate Inj 125 MG/2 ML Vial IV.PUSH SCH ×2 (17:02→22:05)
--- NOTE | 2017-12-13 18:23 | MB ---
cc: Connie Akhtar MD DATE: 12/13/2017 HISTORY OF PRESENT ILLNESS: The patient is a 52-year-old female with a past medical history of COPD, seasonal allergies, hypertension, hyperlipidemia, osteoporosis, posttraumatic stress disorder, and bipolar disorder. She presented to [facility] ED with worsening symptoms of shortness of breath. In the ER, she received IV steroids and bronchodilator treatment. A chest x-ray on arrival showed no evidence of any acute cardiopulmonary disease. The patient subsequently underwent CT angiogram of the chest which showed no evidence of pulmonary embolism. However, it showed patchy pneumonia in the right middle lobe and mild to moderate emphysema. She was started on broad spectrum antibiotics, IV steroids. She reports dry cough associated with wheezing. The patient denies any history of fever, chills, or constitutional symptoms. She denies any prior history of pneumonia or exposure to sick contacts. She recently rescued 4 kittens. She denies any prior history of intubations. The patient reports seasonal allergies where she is allergic to pollen, grass, trees. She remains an active smoker and has a [id number] history of smoking. Her laboratory data showed leukocytosis with a WBC of 15.4. On admission, she was initially placed on BiPAP. An ABG was performed which showed a pH of 7.36, CO2 of 39, pO2 of 66, and a bicarbonate of 22. Currently, she is off BiPAP and is on high flow oxygen with 80% FiO2. Her nasal washing for influenza is negative. The patient denies any nausea, vomiting, abdominal pain. Also, she denies any orthopnea, PND, or edema of lower extremities. PAST MEDICAL HISTORY: Significant for COPD, bronchial asthma, fibromyalgia, hypertension, osteoporosis, posttraumatic stress disorder. PAST SURGICAL HISTORY: Previous hysterectomy, previous appendectomy, previous tonsillectomy. ALLERGIES: MULTIPLE WHICH INCLUDE CEPHALEXIN, OXYCODONE, PAROXETINE, CODEINE. FAMILY HISTORY: Noncontributory to present illness. SOCIAL HISTORY: Active smoker where she smokes a pack a day for about 30 years. Social drinker. CURRENT MEDICATIONS: 1. DuoNeb. 2. Aspirin. 3. Xanax. 4. Vancomycin. 5. Lasix. 6. Aztreonam. 7. Levaquin 8. Heparin subcutaneously. REVIEW OF SYSTEMS: As per HPI. Rest of review of systems is unremarkable. PHYSICAL EXAMINATION: GENERAL: This is a 52-year-old female on high flow oxygen, lying in bed in mild respiratory distress. VITAL SIGNS: Temperature 98.0, pulse of 98, respiratory rate 20, blood pressure 114/60, saturation 94% to 96% on high flow nasal cannula. HEENT: Atraumatic, normocephalic. Pupils are equal, round, reactive to light and accommodation. Extraocular muscles intact. Conjunctivae pink. Nonicteric sclerae. Oral mucosa within normal. NECK: Supple. No JVD, adenopathy, or thyromegaly. Trachea in the midline. CARDIAC: Regular rate and rhythm. Normal S1, S2. No murmurs, rubs, or gallops noted. PULMONARY: Bilateral equal air entry with few coarse breath sounds. ABDOMEN: Soft, nontender. No distention. Positive bowel sounds. EXTREMITIES: No cyanosis, clubbing, or edema. NEUROLOGIC: No focal sensory deficit. LABORATORY DATA: WBC 10.5, hemoglobin 11.1, hematocrit 33, platelet count 221. Sodium 141, potassium 3.6, chloride 110, CO2 of 22, BUN of 11, creatinine 0.69, glucose 179. RADIOGRAPHIC STUDIES: CTA of the chest showed no evidence of pulmonary embolism; however, it showed patchy pneumonia in the right midlung. Also, there is involvement seen in the lingular division of the left upper lobe. Bilateral pulmonary nodules. ASSESSMENT AND PLAN: 1. Acute hypoxemic respiratory insufficiency. 2. Pneumonia. 3. Chronic obstructive pulmonary disease exacerbation. 4. Tobacco abuse. Bilateral pulmonary nodules, 4 mm per report. 5. Seasonal allergies. 6. Tobacco abuse. 7. History of hypertension. 8. Hyperlipidemia. 9. Fibromyalgia. RECOMMENDATIONS: 1. Wean down oxygen as tolerated and maintain saturation above 92%. 2. Bronchodilators in the form of DuoNeb q. 4 plus q. 2 p.r.n. for shortness of breath and Symbicort 160/4.5 two puffs b.i.d. 3. Continue with IV steroids. She is currently on Solu-Medrol 60 mg IV every 8 hours. 4. BiPAP p.r.n. for respiratory distress. 5. Continue with antibiotics in the form of vancomycin, aztreonam, and Levaquin. Monitor for signs of infection which include fever and WBC. Follow up on blood cultures. Influenza screening is negative. We will obtain a sputum culture with Gram stain. Check Mycoplasma pneumoniae, IgM and IgG in addition to Chlamydia pneumoniae titers. 4. Obtain a baseline IgE level given history of asthma and seasonal allergies. 5. Repeat chest x-ray tomorrow. 6. Gastrointestinal and deep venous thrombosis prophylaxis. The patient is on heparin subcutaneous. 7. Further recommendations will be based on hospital course. Thank you for the consultation and allowing us to participate in this patient's care. MD EV Norman/alberto , 01:33 PM , 01:48 PM
[2017-12-14 00:22] LABS: Magnesium 2.3 mg/dL (1.5-2.5)
[2017-12-14 00:26] LABS: Phosphorus 1.9 mg/dL (2.5-4.9)
[2017-12-14 00:38] LABS: Prothrombin Time 9.8 sec (9.8-11.6)
[2017-12-14] MEDS ORDERED: Chlorhexidine Gluconate 2% 1 Pack (2 Cloths) TOPICAL PRN (04:00)
[2017-12-14 05:14] LABS: Baso % (Auto) 0.1 % (0.0-2.0); Eos % (Auto) 0.1 % (0.0-4.0); Hematocrit 32.7 % (35.0-46.0); Hemoglobin 10.4 gm/dL (11.6-15.3); Lymph # (Auto) 0.5 th/mm3 (1.0-4.8); Lymph % (Auto) 2.1 % (9.0-44.0); Mean Corpuscular HGB Conc 31.7 % (32.0-36.0); Mean Corpuscular Hemoglobin 25.2 pg (27.0-34.0); Mean Corpuscular Volume 79.4 fL (80.0-100.0); Mean Platelet Volume 10.6 fL (7.0-11.0); Mono # (Auto) 0.6 th/mm3 (0.0-0.9); Mono % (Auto) 2.8 % (0.0-8.0); Neut # (Auto) 20.4 th/mm3 (1.8-7.7); Neut % (Auto) 94.9 % (16.0-70.0); Platelet Count 208 th/mm3 (150-450); Red Blood Count 4.12 mil/mm3 (4.00-5.30); Red Cell Distribution Width 18.9 % (11.6-17.2); White Blood Count 21.5 th/mm3 (4.0-11.0)
[2017-12-14 05:21] LABS: Chloride 109 meq/L (98-107); Potassium 3.7 meq/L (3.5-5.1); Sodium 141 meq/L (136-145)
[2017-12-14 05:27] LABS: Calcium 8.3 mg/dL (8.5-10.1)
[2017-12-14 05:28] LABS: Albumin 3.1 g/dL (3.4-5.0); Anion Gap 8 meq/L (5-15); Blood Urea Nitrogen 18 mg/dL (7-18); Carbon Dioxide 24.1 meq/L (21.0-32.0); Glucose,Random 135 mg/dL (74-106); Magnesium 2.3 mg/dL (1.5-2.5)
[2017-12-14 05:31] LABS: Alanine Aminotransferase 16 U/L (10-53); Aspartate Aminotransferase 15 U/L (15-37); Glomerular Filtration Rate Greater Than 89 mL/min (>89); Phosphorus 2.5 mg/dL (2.5-4.9)
[2017-12-14 05:32] LABS: Total Protein 6.5 g/dL (6.4-8.2)
[2017-12-14 05:33] LABS: Ovalocytes 1+; Platelet Estimate Normal (Normal)
[2017-12-14 05:34] LABS: Alkaline Phosphatase 75 U/L (45-117)
[2017-12-14] MEDS: Chlorhexidine Gluconate 2% 1 Pack (2 Cloths) TOPICAL SCH (05:35)
[2017-12-14] MEDS: MethylPREDNISolone Sod Succinate Inj 125 MG/2 ML Vial IV.PUSH SCH ×3 (05:36→21:06)
[2017-12-14 05:42] LABS: Thyroid Stimulating Hormone 0.149 uIU/mL (0.358-3.740)
--- NOTE | 2017-12-14 05:56 | XR ---
EXAM DATE: 12/14/2017 5:48 AM EDT AGE/SEX: 52 years / Female INDICATIONS: Shortness of breath. CLINICAL DATA: This is the patient's subsequent encounter. Patient reports that signs and symptoms h ave been present for 2 days and indicates a pain score of Nonresponsive. MEDICAL/SURGICAL HISTORY: None. None. COMPARISON: [facility]PO, CHEST 1V SINGLE AP, 12/12/2017. . FINDINGS: Single AP view the chest. The lungs are clear. Cardiomediastinal silhouette within normal limits. No evidence of pleural effusion or pneumothorax. CONCLUSION: No acute cardiopulmonary disease identified. Electronically signed by: Afshin Macias MD 12/14/2017 5:55 AM EDT
--- NOTE | 2017-12-14 07:31 | P.PNCC ---
Subjective Subjective Remarks/Hospital Course: This is a 52-year-old female. Date of admission 12/12/2017. Date of consultation 12/13/2017. Past medical history includes COPD, asthma which he describes as seasonal allergies, bipolar disorder, posttraumatic stress disorder , depression, fibromyalgia, hypertension, hyperlipidemia, osteoporosis and chronic benzodiazepine use. She also has polycythemia vera she is also on hormone replacement therapy. Patient originally presented to urgent care yesterday for shortness of breath. She received aerosolized therapy improved and went home. She presented to [facility] late or last night with worsening symptoms of dyspnea, shortness of breath. In the ED, patient's received chest x-ray and received multiple bronchodilator therapy and intravenous methylprednisolone succinate. At that time, patient was on 5 L nasal cannula with an oxygen saturation of 90%. She is not having any respiratory distress at this time. She received a CT pulmonary, due to an abnormal d-dimer. Pneumonia was noted in the right middle lobe and lingula on the left side. She received ceftriaxone and azithromycin. She was admitted to the hospital service. Again, CT pulmonary angiogram revealed no central pulmonary rales. Small bilateral pulmonary nodules. Infiltrates by the left upper lobe/lingula and right middle lobe. She was treated with bronchodilator therapy. Overnight, transition from 5 L nasal cannula to 100% nonrebreather was transferred to the ICU. I evaluate the patient at that time in room 8401. She is currently awake alert and oriented 3. Will attempt aggressive albuterol aerosol therapies in place on BiPAP short-term. Pulmonology will be consulted. She states she does not have a straight cutter machine. SUBJECTIVE: 12/14: Afebrile. Currently on high flow nasal cannula 40% 35 L. Appears comfortable. Requesting adjustment to her anti-psychiatric medications. Tolerating diet. Positive BM. Objective Vital Signs / I&O: Vital Signs 12/13/17 07:36 12/13/17 08:00 12/13/17 08:01 Temperature Pulse Rate 103 H 106 H 106 H Respiratory Rate 23 26 H Blood Pressure 98/54 L Pulse Oximetry 95 98 97 12/13/17 08:09 12/13/17 09:00 12/13/17 09:14 Temperature Pulse Rate 104 H 102 H 100 H Respiratory Rate 26 H 26 H 24 Blood Pressure 109/60 114/60 Pulse Oximetry 95 94 L 12/13/17 10:00 12/13/17 10:09 12/13/17 10:23 Temperature Pulse Rate 102 H 100 H Respiratory Rate 24 21 Blood Pressure 110/54 L 110/54 L Pulse Oximetry 94 L 94 L 94 L 12/13/17 11:00 12/13/17 11:09 12/13/17 11:46 Temperature Pulse Rate 96 H Respiratory Rate 19 Blood Pressure 103/58 L Pulse Oximetry 95 96 100 12/13/17 12:09 12/13/17 12:52 12/13/17 13:00 Temperature 98.0 F Pulse Rate 102 H 98 H Respiratory Rate 32 H 20 Blood Pressure 105/64 114/60 Pulse Oximetry 93 L 94 L 96 12/13/17 14:09 12/13/17 14:15 12/13/17 15:09 Temperature Pulse Rate 110 H 105 H 104 H Respiratory Rate 26 H 26 H 16 Blood Pressure 163/77 H 138/63 Pulse Oximetry 100 99 12/13/17 16:09 12/13/17 16:15 12/13/17 16:16 Temperature 98.1 F Pulse Rate 96 H 102 H Respiratory Rate 19 20 Blood Pressure 119/74 Pulse Oximetry 100 97 12/13/17 17:09 12/13/17 18:09 12/13/17 19:00 Temperature Pulse Rate 102 H 104 H 101 H Respiratory Rate 30 H 28 H 26 H Blood Pressure 114/71 124/76 119/66 Pulse Oximetry 97 96 98 12/13/17 19:49 12/13/17 20:00 12/13/17 21:00 Temperature 98.3 F Pulse Rate 100 H 101 H 106 H Respiratory Rate 22 25 H 20 Blood Pressure 142/75 H Pulse Oximetry 99 98 94 L 12/13/17 21:35 12/13/17 22:00 12/13/17 23:46 Temperature Pulse Rate 88 108 H Respiratory Rate 18 Blood Pressure Pulse Oximetry 100 12/14/17 00:00 12/14/17 00:10 12/14/17 03:01 Temperature 97.6 F Pulse Rate 105 H 94 H Respiratory Rate 29 H 20 Blood Pressure 121/65 Pulse Oximetry 96 12/14/17 03:33 12/14/17 04:00 Temperature Pulse Rate 94 H Respiratory Rate 15 Blood Pressure 110/60 Pulse Oximetry 96 95 Intake & Output 12/13/17 12/14/17 12/14/17 18:59 06:59 18:59 Intake Total 930 / 930 1170 / 1170 Output Total 700 / 700 Balance 230 / 230 1170 / 1170 Weight 66.9 kg Intake: IV 450 / 450 350 / 350 Azactam Inj 2 GM In NS Inj 100 200 / 200 100 / 100 ML @ 200 mls/hr IV.SIG Q8H WARNER Rx#:[id number] Vancomycin Inj 1,000 MG In NS 250 / 250 250 / 250 Inj 250 ML @ 250 mls/hr IV.SIG Q12H WARNER Rx#:[id number] Oral 480 / 480 820 / 820 Output: Urine 700 / 700 Other: # Voids 2 # Urine Diapers 1 Date of Last Bowel Movement 12/12/17 12/14/17 # Bowel Movements 1 Result Diagrams: 12/14/17 04:35 12/14/17 04:35 Other Results: Microbiology 12/12/17 22:45 Blood - Peripheral Aerobic Blood Culture - Preliminary No growth in 1 day 12/12/17 22:45 Blood - Peripheral Anaerobic Blood Culture - Preliminary No growth in 1 day 12/12/17 22:50 Blood - Peripheral Aerobic Blood Culture - Preliminary No growth in 1 day 12/12/17 22:50 Blood - Peripheral Anaerobic Blood Culture - Preliminary No growth in 1 day 12/12/17 22:56 Nasal Wash Influenza Types A,B Antigen - Final Negative for FLU A and B antigen Infection due to influenza A or B cannot be ruled out since the antigen present in the sample may be below the detection limit of the test. Imaging: Chest X-Ray 12/12/17 22:23 CONCLUSION: No acute cardiopulmonary disease. Chest CTA 12/12/17 23:19 CONCLUSION: 1. No pulmonary embolus. 2. Patchy pneumonia as described, largest and most conspicuous in the right middle lobe. 3. Mild to moderate emphysema. Chest X-Ray 12/14/17 06:00 CONCLUSION: No acute cardiopulmonary disease identified. Objective Remarks: GENERAL: 52-year-old female resting in bed in no acute distress SKIN: Warm and dry. HEAD: Atraumatic. Normocephalic. EYES: Pupils equal and round. No scleral icterus. No injection or drainage. ENT: No nasal bleeding or discharge. Mucous membranes pink and moist. NECK: Trachea midline. No JVD. CARDIOVASCULAR: Regular rate and rhythm. RESPIRATORY: No accessory muscle use. Diminished breath sounds throughout currently posteriorly. Positive end expiratory wheeze. GASTROINTESTINAL: Abdomen soft, non-tender, obese. Hepatic and splenic margins not palpable. MUSCULOSKELETAL: Extremities without clubbing, cyanosis, or edema. No obvious deformities. NEUROLOGICAL: Awake and alert. No obvious cranial nerve deficits. Motor grossly within normal limits. Five out of 5 muscle strength in the arms and legs. Normal speech. PSYCHIATRIC: Appropriate mood and affect; insight and judgment normal. Assessment and Plan - Assessment and Plan Plan: Neuro/Psych: Bipolar disorder NOS Depression chronic benzodiazepine use Fibromyalgia Allergic rhinitis Previously on hydroxyzine 25 mg 4 times daily as needed anxiety, Quetiapine 300 mg a.m., 600 mg p.m. daily for depression/bipolar disorder Holding meloxicam 15 mg daily Continue alprazolam 2 mg twice daily Currently resuming cetirizine 5 mg daily for allergic rhinitis CV: Essential hypertension Continue aspirin 81 mg daily On bisoprolol/hydrochlorothiazide 2.5/6.25 mg daily at home for hypertension. On furosemide 40 mg daily at home. With potassium chloride supplementation 20 mEq Check 2D echo\ As needed Nitropaste/nicardipine drip for hypertension. Resp: Acute hypoxic hypercapnic respiratory failure secondary to meeting acquired pneumonia History of emphysema/tobaccoism History of mild intermittent asthma -secondary to seasonal allergies Previously on 100% nonrebreather. Currently on high flow nasal cannula 35 L 40%. Salmeterol/formoterol 160/4.5 2 puffs twice daily Methylprednisolone succinate 60 mg IV every 8 hour Pulmonary consultation appreciated See antibiotics below infectious disease section CT pulmonary angiogram revealed no central pulmonary embolism. Right middle lobe infiltrate. Left upper lobe/lingular infiltrate. Bilateral less than 4 mm pulmonary nodules. Follow-up chest x-ray in a.m. 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 Endo: Low TSH Sliding scale insulin Accu-Cheks to maintain euglycemia/Accu-Cheks before meals at bedtime with low regimen of aspirin insulin while on steroids Check free T3/T4 in a.m. 12/15 Renal: Creatinine currently within normal limits Monitor urine output Accurate I's and O's Heme: Polycythemia vera Microcytic anemia Leukocytosis Monitor CBC daily. Follow trends. No indication for transfusion of blood products at this time ID: Initially treated with ceftriaxone and Zithromax in the ED. Currently on vancomycin, aztreonam and levofloxacin. Blood cultures 2 performed. Results no growth to date Sputum pending. Pneumococcal and Legionella urinary antigens. Chlamydia and mycoplasma pending. UA pending Influenza a and B- MSK: Osteoporosis//arthritis Currently holding alendronate 70 mg daily. PT evaluate and treat FEN: Chronic hypokalemia Previously on 20 mg potassium chloride daily. Continue. Replace electrolytes per ICU electrolyte protocol Access -Utilize peripheral IV. Central line if indicated Prophylaxis -GI-pantoprazole -DVT SCD/heparin subcu Level 3 follow-up
[2017-12-14] MEDS ORDERED: ESTROPIPATE 1.5 MG PO SCH ×2 (09:00)
[2017-12-14] MEDS: Senna/Docusate Sodium 8.6/50 MG Tablet PO SCH ×2 (09:10→21:04)
[2017-12-14] MEDS: guaiFENesin 600 MG ER Tablet PO SCH ×2 (09:11→21:03)
[2017-12-14] MEDS: Aztreonam Inj 2 GM in Sodium Chloride 0.9% Inj 100 ML IV.SIG SCH ×2 (09:12→17:38)
[2017-12-14] MEDS: Vancomycin Inj 1,000 MG in Sodium Chlor 0.9% Inj 250 ML IV.SIG SCH ×2 (09:12→21:06)
[2017-12-14] MEDS: Furosemide 40 MG Tablet PO SCH (09:12)
[2017-12-14] MEDS: Budesonide-Formoterol 160/4.5 MCG 6 GM Inhaler INH SCH ×2 (09:13→21:06)
[2017-12-14] MEDS: Heparin - SQ 10,000 UNITS/ML Vial SQ SCH ×2 (09:13→21:05)
[2017-12-14] MEDS: Insulin NovoLOG Aspart Correctional Sugar Inj SQ SCH ×4 (11:07→21:11)
--- NOTE | 2017-12-14 18:50 | ECG ---
Date Performed: 12/12/2017 Time Performed: 22:18:25 PTAGE: 52 years EKG: SINUS TACHYCARDIA POSSIBLE LEFT ATRIAL ENLARGEMENT POSSIBLE RIGHT VENTRICULAR CONDUCTION DE LAY ABNORMAL RHYTHM ECG NO PREVIOUS TRACING DOCTOR: Eran Murillo Interpretating Date/Time 12/14/2017 18:40:20
--- NOTE | 2017-12-14 20:12 | P.PNPL ---
Subjective Interval history: 52 YOWF with Br Asthma, PCV Breathing much better Weaned to RA Has intermittent wheezing Physical Exam Vital signs: Vital Signs 12/13/17 21:00 12/13/17 21:35 12/13/17 22:00 Temperature Pulse Rate 106 H 88 Respiratory Rate 20 Blood Pressure Pulse Oximetry 94 L 100 12/13/17 23:46 12/14/17 00:00 12/14/17 00:10 Temperature 97.6 F Pulse Rate 108 H 105 H Respiratory Rate 18 29 H Blood Pressure 121/65 Pulse Oximetry 96 12/14/17 03:01 12/14/17 03:33 12/14/17 04:00 Temperature Pulse Rate 94 H 94 H Respiratory Rate 20 15 Blood Pressure 110/60 Pulse Oximetry 96 95 12/14/17 07:00 12/14/17 07:15 12/14/17 08:00 Temperature Pulse Rate 92 H Respiratory Rate Blood Pressure Pulse Oximetry 96 98 96 12/14/17 08:19 12/14/17 11:00 12/14/17 11:37 Temperature Pulse Rate 96 H 98 H 96 H Respiratory Rate 20 20 18 Blood Pressure 114/64 Pulse Oximetry 96 100 99 12/14/17 12:00 12/14/17 13:00 12/14/17 15:29 Temperature 97.9 F Pulse Rate 108 H 112 H 108 H Respiratory Rate 40 H 30 H 18 Blood Pressure 98/51 L Pulse Oximetry 100 100 96 12/14/17 16:00 12/14/17 16:27 Temperature 97.6 F Pulse Rate 116 H Respiratory Rate 32 H Blood Pressure 153/83 H Pulse Oximetry 98 95 Intake & Output 12/14/17 12/14/17 12/15/17 06:59 18:59 06:59 Intake Total 1170 / 1170 870 / 870 100 / 100 Output Total 0 / 0 Balance 1170 / 1170 870 / 870 100 / 100 Weight 66.9 kg Intake: IV 350 / 350 350 / 350 100 / 100 Azactam Inj 2 GM In NS Inj 100 100 / 100 100 / 100 100 / 100 ML @ 200 mls/hr IV.SIG Q8H WARNER Rx#:[id number] Vancomycin Inj 1,000 MG In NS 250 / 250 250 / 250 Inj 250 ML @ 250 mls/hr IV.SIG Q12H WARNER Rx#:[id number] Oral 820 / 820 520 / 520 Output: Stool 0 / 0 Other: # Voids 3 # Urine Diapers 1 Date of Last Bowel Movement 12/14/17 12/12/17 # Bowel Movements 1 GENERAL: WBWn NAD SKIN: Warm and dry. HEAD: Normocephalic. EYES: No scleral icterus. No injection or drainage. NECK: Supple, trachea midline. No JVD or lymphadenopathy. CARDIOVASCULAR: Regular rate and rhythm without murmurs, gallops, or rubs. RESPIRATORY: Breath sounds equal bilaterally. No accessory muscle use. GASTROINTESTINAL: Abdomen soft, non-tender, nondistended. MUSCULOSKELETAL: No cyanosis, or edema. BACK: Nontender without obvious deformity. No CVA tenderness. Assessment and Plan - Plan IMPRESSION: Br asthma exac Lung infilt PCV Pulm nodule PLAN: Cont Steroids Cont Abx Aerosol nebs Check IGE, Aspergillus Ag
[2017-12-15] MEDS: Aztreonam Inj 2 GM in Sodium Chloride 0.9% Inj 100 ML IV.SIG SCH ×3 (00:42→15:06)
[2017-12-15] MEDS: Chlorhexidine Gluconate 2% 1 Pack (2 Cloths) TOPICAL SCH (04:31)
[2017-12-15 05:05] LABS: Baso % (Auto) 0.1 % (0.0-2.0); Eos % (Auto) 0.1 % (0.0-4.0); Hematocrit 32.7 % (35.0-46.0); Hemoglobin 10.1 gm/dL (11.6-15.3); Lymph # (Auto) 0.6 th/mm3 (1.0-4.8); Lymph % (Auto) 3.4 % (9.0-44.0); Mean Corpuscular Hemoglobin 24.7 pg (27.0-34.0); Mean Corpuscular Volume 79.6 fL (80.0-100.0); Mean Platelet Volume 10.6 fL (7.0-11.0); Mono # (Auto) 0.4 th/mm3 (0.0-0.9); Mono % (Auto) 2.3 % (0.0-8.0); Neut # (Auto) 17.6 th/mm3 (1.8-7.7); Neut % (Auto) 94.1 % (16.0-70.0); Platelet Count 214 th/mm3 (150-450); Red Blood Count 4.11 mil/mm3 (4.00-5.30); Red Cell Distribution Width 18.5 % (11.6-17.2); White Blood Count 18.6 th/mm3 (4.0-11.0)
[2017-12-15 05:23] LABS: Ovalocytes 1+; Platelet Estimate Normal (Normal)
[2017-12-15] MEDS: MethylPREDNISolone Sod Succinate Inj 125 MG/2 ML Vial IV.PUSH SCH ×3 (06:11→23:01)
--- NOTE | 2017-12-15 06:21 | XR ---
EXAM DATE: 12/15/2017 6:18 AM EDT AGE/SEX: 52 years / Female INDICATIONS: Shortness of breath. CLINICAL DATA: This is the patient's subsequent encounter. Patient reports that signs and symptoms h ave been present for 3 days and indicates a pain score of 0/10. MEDICAL/SURGICAL HISTORY: None. None. COMPARISON: HPO, CHEST 1V SINGLE AP, 12/14/2017. . FINDINGS: Single AP view the chest. Minimal patchy left lower lung zone opacity. No evidence of pleural effusio n or pneumothorax. Cardiomediastinal silhouette within normal limits. CONCLUSION: Mild patchy left lung base opacity. Electronically signed by: Afshin Macias MD 12/15/2017 6:19 AM EDT
--- NOTE | 2017-12-15 06:38 | P.PNCC ---
Subjective Subjective Remarks/Hospital Course: This is a 52-year-old female. Date of admission 12/12/2017. Date of consultation 12/13/2017. Past medical history includes COPD, asthma which he describes as seasonal allergies, bipolar disorder, posttraumatic stress disorder , depression, fibromyalgia, hypertension, hyperlipidemia, osteoporosis and chronic benzodiazepine use. She also has polycythemia vera she is also on hormone replacement therapy. Patient originally presented to urgent care yesterday for shortness of breath. She received aerosolized therapy improved and went home. She presented to [facility] late or last night with worsening symptoms of dyspnea, shortness of breath. In the ED, patient's received chest x-ray and received multiple bronchodilator therapy and intravenous methylprednisolone succinate. At that time, patient was on 5 L nasal cannula with an oxygen saturation of 90%. She is not having any respiratory distress at this time. She received a CT pulmonary, due to an abnormal d-dimer. Pneumonia was noted in the right middle lobe and lingula on the left side. She received ceftriaxone and azithromycin. She was admitted to the hospital service. Again, CT pulmonary angiogram revealed no central pulmonary rales. Small bilateral pulmonary nodules. Infiltrates by the left upper lobe/lingula and right middle lobe. She was treated with bronchodilator therapy. Overnight, transition from 5 L nasal cannula to 100% nonrebreather was transferred to the ICU. I evaluate the patient at that time in room 8401. She is currently awake alert and oriented 3. Will attempt aggressive albuterol aerosol therapies in place on BiPAP short-term. Pulmonology will be consulted. 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 SUBJECTIVE: 12/14: Afebrile. Currently on high flow nasal cannula 40% 35 L. Appears comfortable. Requesting adjustment to her anti-psychiatric medications. Tolerating diet. Positive BM. 12/15: Lying in bed mild shortness of breath. Remains off BiPAP, good oxygen saturation on room air. Mild bilateral wheezing on exam, Spiriva added. Chest x-ray with mild left lower lobe infiltrate Objective Vital Signs / I&O: Vital Signs 12/14/17 07:00 12/14/17 07:15 12/14/17 08:00 Temperature Pulse Rate 92 H Respiratory Rate Blood Pressure Pulse Oximetry 96 98 96 12/14/17 08:19 12/14/17 11:00 12/14/17 11:37 Temperature Pulse Rate 96 H 98 H 96 H Respiratory Rate 20 20 18 Blood Pressure 114/64 Pulse Oximetry 96 100 99 12/14/17 12:00 12/14/17 13:00 12/14/17 15:29 Temperature 97.9 F Pulse Rate 108 H 112 H 108 H Respiratory Rate 40 H 30 H 18 Blood Pressure 98/51 L Pulse Oximetry 100 100 96 12/14/17 16:00 12/14/17 16:27 12/14/17 19:22 Temperature 97.6 F Pulse Rate 116 H 109 H Respiratory Rate 32 H 24 Blood Pressure 153/83 H Pulse Oximetry 98 95 97 12/14/17 20:00 12/14/17 21:00 12/14/17 23:05 Temperature 98.3 F Pulse Rate 110 H 106 H 103 H Respiratory Rate 24 24 Blood Pressure 140/81 Pulse Oximetry 97 97 12/15/17 00:00 12/15/17 03:10 12/15/17 04:00 Temperature 98.4 F 98.3 F Pulse Rate 106 H 90 92 H Respiratory Rate 22 22 Blood Pressure 127/81 111/63 Pulse Oximetry 96 96 Intake & Output 12/14/17 12/14/17 12/15/17 06:59 18:59 06:59 Intake Total 1170 / 1170 870 / 870 600 / 600 Output Total 0 / 0 300 / 300 Balance 1170 / 1170 870 / 870 300 / 300 Weight 66.9 kg Intake: IV 350 / 350 350 / 350 600 / 600 Azactam Inj 2 GM In NS Inj 100 100 / 100 100 / 100 200 / 200 ML @ 200 mls/hr IV.SIG Q8H WARNER Rx#:[id number] Levaquin 750 mg Premix Inj 150 150 / 150 ML @ 100 mls/hr IV.SIG Q24H WARNER Rx#:[id number] Vancomycin Inj 1,000 MG In NS 250 / 250 250 / 250 250 / 250 Inj 250 ML @ 250 mls/hr IV.SIG Q12H WARNER Rx#:[id number] Oral 820 / 820 520 / 520 Output: Urine 300 / 300 Stool 0 / 0 Other: # Voids 3 # Urine Diapers 1 Date of Last Bowel Movement 12/14/17 12/12/17 12/14/17 # Bowel Movements 1 Result Diagrams: 12/15/17 04:25 12/14/17 04:35 Objective Remarks: GENERAL: 52-year-old female resting in bed mild distress SKIN: Warm and dry. HEAD: Atraumatic. Normocephalic. EYES: Pupils equal and round. No scleral icterus. No injection or drainage. ENT: No nasal bleeding or discharge. Mucous membranes pink and moist. NECK: Trachea midline. No JVD. CARDIOVASCULAR: Regular rate and rhythm. RESPIRATORY: No accessory muscle use. Diminished breath sounds throughout currently posteriorly. Positive end expiratory wheeze. GASTROINTESTINAL: Abdomen soft, non-tender, obese. Hepatic and splenic margins not palpable. MUSCULOSKELETAL: Extremities without clubbing, cyanosis, or edema. No obvious deformities. NEUROLOGICAL: Awake and alert. No obvious cranial nerve deficits. Motor grossly within normal limits. PSYCHIATRIC: Appropriate mood and affect; insight and judgment normal. Assessment and Plan - Assessment and Plan Plan: Neuro/Psych: Bipolar disorder NOS Depression chronic benzodiazepine use Fibromyalgia Allergic rhinitis Previously on hydroxyzine 25 mg 4 times daily as needed anxiety, Quetiapine 300 mg a.m., 600 mg p.m. daily for depression/bipolar disorder Holding meloxicam 15 mg daily Continue alprazolam 2 mg twice daily Cetirizine 5 mg daily for allergic rhinitis CV: Essential hypertension On bisoprolol/hydrochlorothiazide 2.5/6.25 mg daily at home for hypertension. On furosemide 40 mg daily at home. Continue aspirin 81 mg daily With potassium chloride supplementation 20 mEq 2D echo Normal EF Resp: Acute hypoxic hypercapnic respiratory failure secondary to community acquired pneumonia- History of emphysema/tobaccoism History of mild intermittent asthma -secondary to seasonal allergies Previously on 100% nonrebreather. Currently on room air with good oxygen saturation Salmeterol/formoterol 160/4.5 2 puffs twice daily. Add Spiriva 1 cap inhaler daily Methylprednisolone succinate 60 mg IV every 8 hour Pulmonary consultation appreciated See antibiotics below infectious disease section CT pulmonary angiogram: no central pulmonary embolism. Right middle lobe infiltrate. Left upper lobe/lingular infiltrate. Bilateral less than 4 mm pulmonary nodules. Follow-up chest x-ray in a.m. 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 Endo: Low TSH Sliding scale insulin Accu-Cheks to maintain euglycemia/Accu-Cheks before meals at bedtime with low regimen of aspirin insulin while on steroids Check free T3/T4 in a.m. 12/15-pending at this time Renal: Creatinine currently within normal limits Monitor urine output Accurate I's and O's Heme: Polycythemia vera Microcytic anemia Leukocytosis Monitor CBC daily. Follow trends. No indication for transfusion of blood products at this time ID: Initially treated with ceftriaxone and Zithromax in the ED. Currently on vancomycin, aztreonam and levofloxacin. Blood cultures 2 performed. Results no growth to date Sputum culture not available. Do pneumococcal and Legionella urinary antigens. Chlamydia and mycoplasma pending. UA pending Influenza a and B-ve MSK: Osteoporosis//arthritis Currently holding alendronate 70 mg daily. PT evaluate and treat FEN: Chronic hypokalemia Previously on 20 mg potassium chloride daily. Continue. Replace electrolytes per ICU electrolyte protocol Access -Utilize peripheral IV. Central line if indicated Prophylaxis -GI-pantoprazole -DVT SCD/heparin subcu Level 2 [facility] consulted to assume care in am 12/16/17
[2017-12-15 08:21] LABS: Chloride 109 meq/L (98-107); Potassium 3.9 meq/L (3.5-5.1); Sodium 142 meq/L (136-145)
[2017-12-15 08:25] LABS: Anion Gap 6 meq/L (5-15); Blood Urea Nitrogen 20 mg/dL (7-18); Calcium 8.3 mg/dL (8.5-10.1); Carbon Dioxide 27.2 meq/L (21.0-32.0); Glucose,Random 118 mg/dL (74-106); Magnesium 2.4 mg/dL (1.5-2.5)
[2017-12-15 08:28] LABS: Alanine Aminotransferase 18 U/L (10-53); Aspartate Aminotransferase 14 U/L (15-37); Glomerular Filtration Rate Greater Than 89 mL/min (>89)
[2017-12-15 08:29] LABS: Phosphorus 2.3 mg/dL (2.5-4.9)
[2017-12-15 08:30] LABS: Total Protein 6.5 g/dL (6.4-8.2)
[2017-12-15 08:31] LABS: Alkaline Phosphatase 72 U/L (45-117)
[2017-12-15] MEDS ORDERED: Pharmacy Ordered Lab Info OTHER ONE (08:45)
[2017-12-15] MEDS: Insulin NovoLOG Aspart Correctional Sugar Inj SQ SCH ×4 (08:53→21:04)
[2017-12-15] MEDS: guaiFENesin 600 MG ER Tablet PO SCH ×2 (09:06→20:47)
[2017-12-15] MEDS: Budesonide-Formoterol 160/4.5 MCG 6 GM Inhaler INH SCH ×2 (09:07→20:47)
[2017-12-15] MEDS: Tiotropium Bromide 18 MCG/ACT Inhaler INH SCH (09:07)
[2017-12-15 10:38] LABS: Free T4 (Free Thyroxine) 0.64 ng/dL (0.76-1.46); Triiodothyronine (T3) Free 0.85 pg/mL (2.18-3.98); Vancomycin,Trough 12.1 mcg/mL (5.0-10.0)
[2017-12-15] MEDS: Senna/Docusate Sodium 8.6/50 MG Tablet PO SCH ×2 (10:45→20:47)
[2017-12-15] MEDS: Furosemide 40 MG Tablet PO SCH (10:45)
[2017-12-15] MEDS: Heparin - SQ 10,000 UNITS/ML Vial SQ SCH ×3 (10:48→23:00)
[2017-12-15] MEDS: Vancomycin Inj 1,000 MG in Sodium Chlor 0.9% Inj 250 ML IV.SIG SCH ×2 (11:07→20:46)
[2017-12-15] MEDS: Carisoprodol 350 MG Tablet PO PRN (15:05)
--- NOTE | 2017-12-15 17:48 | P.PNPL ---
Subjective Interval history: 52 YOWF with Br Asthma, PCV Breathing much better Weaned to RA Has intermittent wheezing Sputum culture sent Physical Exam Vital signs: Vital Signs 12/14/17 19:22 12/14/17 20:00 12/14/17 21:00 Temperature 98.3 F Pulse Rate 109 H 110 H 106 H Respiratory Rate 24 24 Blood Pressure 140/81 Pulse Oximetry 97 97 97 12/14/17 23:05 12/15/17 00:00 12/15/17 03:10 Temperature 98.4 F Pulse Rate 103 H 106 H 90 Respiratory Rate 24 22 22 Blood Pressure 127/81 Pulse Oximetry 96 12/15/17 04:00 12/15/17 07:45 12/15/17 08:00 Temperature 98.3 F Pulse Rate 92 H 99 H 96 H Respiratory Rate 20 Blood Pressure 111/63 Pulse Oximetry 96 95 96 12/15/17 09:21 12/15/17 10:30 12/15/17 11:24 Temperature 97.9 F Pulse Rate 104 H 108 H 96 H Respiratory Rate 39 H 33 H 19 Blood Pressure 127/58 L 144/75 H Pulse Oximetry 12/15/17 12:33 12/15/17 13:33 12/15/17 15:00 Temperature 98.2 F 98.6 F Pulse Rate 108 H 114 H 108 H Respiratory Rate 25 H 20 36 H Blood Pressure 162/85 H 143/80 H Pulse Oximetry 12/15/17 16:00 12/15/17 16:25 Temperature 98.6 F Pulse Rate 112 H Respiratory Rate 20 Blood Pressure Pulse Oximetry Intake & Output 12/14/17 12/15/17 12/15/17 18:59 06:59 18:59 Intake Total 870 / 870 600 / 600 610 / 610 Output Total 0 / 0 1300 / 1300 Balance 870 / 870 -700 / -700 610 / 610 Weight 71.3 kg Intake: IV 350 / 350 600 / 600 610 / 610 Azactam Inj 2 GM In NS Inj 100 100 / 100 200 / 200 100 / 100 ML @ 200 mls/hr IV.SIG Q8H WARNER Rx#:[id number] Levaquin 750 mg Premix Inj 150 150 / 150 ML @ 100 mls/hr IV.SIG Q24H WARNER Rx#:[id number] Sodium Phosphate Inj 30 MMOL In 260 / 260 NS Inj 250 ML @ 42 mls/hr IV. SIG UNSCH PRN Rx#:[id number] Vancomycin Inj 1,000 MG In NS 250 / 250 250 / 250 250 / 250 Inj 250 ML @ 250 mls/hr IV.SIG Q12H WARNER Rx#:[id number] Oral 520 / 520 Output: Urine 1300 / 1300 Stool 0 / 0 Other: # Voids 3 1 Date of Last Bowel Movement 12/12/17 12/15/17 12/15/17 # Bowel Movements 1 GENERAL: WBWN, NAD SKIN: Warm and dry. HEAD: Normocephalic. EYES: No scleral icterus. No injection or drainage. NECK: Supple, trachea midline. No JVD or lymphadenopathy. CARDIOVASCULAR: Regular rate and rhythm without murmurs, gallops, or rubs. RESPIRATORY: Breath sounds equal bilaterally. No accessory muscle use. End exp rhonchi GASTROINTESTINAL: Abdomen soft, non-tender, nondistended. MUSCULOSKELETAL: No cyanosis, or edema. BACK: Nontender without obvious deformity. No CVA tenderness. Assessment and Plan - Plan IMPRESSION: Br asthma exac Lung infilt PCV Pulm nodule PLAN: Cont Steroids Cont Abx Aerosol nebs Check IGE, Aspergillus Ag Check sp culture Bedside PFT
[2017-12-16] MEDS: Aztreonam Inj 2 GM in Sodium Chloride 0.9% Inj 100 ML IV.SIG SCH ×3 (00:41→15:55)
[2017-12-16] MEDS: Chlorhexidine Gluconate 2% 1 Pack (2 Cloths) TOPICAL SCH (03:51)
[2017-12-16] MEDS: MethylPREDNISolone Sod Succinate Inj 125 MG/2 ML Vial IV.PUSH SCH ×3 (06:28→21:59)
[2017-12-16] MEDS: Heparin - SQ 10,000 UNITS/ML Vial SQ SCH ×3 (06:29→22:36)
[2017-12-16] MEDS: Tiotropium Bromide 18 MCG/ACT Inhaler INH SCH (08:37)
[2017-12-16] MEDS: Vancomycin Inj 1,000 MG in Sodium Chlor 0.9% Inj 250 ML IV.SIG SCH ×2 (08:37→21:58)
[2017-12-16] MEDS: Budesonide-Formoterol 160/4.5 MCG 6 GM Inhaler INH SCH ×2 (08:37→21:15)
[2017-12-16] MEDS: guaiFENesin 600 MG ER Tablet PO SCH ×2 (08:42→21:14)
[2017-12-16] MEDS: Insulin NovoLOG Aspart Correctional Sugar Inj SQ SCH ×2 (08:43→18:58)
[2017-12-16] MEDS: Furosemide 40 MG Tablet PO SCH (10:52)
[2017-12-16] MEDS: Senna/Docusate Sodium 8.6/50 MG Tablet PO SCH ×2 (10:53→21:15)
--- NOTE | 2017-12-16 11:57 | P.PNIM ---
Subjective Interval history: Clinically patient is improved this morning. She has been able to wean off oxygen. Wheezing remains. She has not yet ambulated significantly. Physical Exam Vital signs: Vital Signs 12/15/17 12:33 12/15/17 13:33 12/15/17 15:00 Temperature 98.2 F 98.6 F Pulse Rate 108 H 114 H 108 H Respiratory Rate 25 H 20 36 H Blood Pressure 162/85 H 143/80 H Pulse Oximetry 12/15/17 16:00 12/15/17 16:25 12/15/17 19:20 Temperature 98.6 F Pulse Rate 112 H 112 H Respiratory Rate 20 24 Blood Pressure Pulse Oximetry 97 12/15/17 20:00 12/15/17 21:00 12/15/17 23:05 Temperature 99.0 F Pulse Rate 104 H 112 H 100 H Respiratory Rate 33 H 19 Blood Pressure 162/77 H Pulse Oximetry 96 96 12/16/17 00:00 12/16/17 03:00 12/16/17 04:00 Temperature 99.0 F Pulse Rate 111 H 84 96 H Respiratory Rate 22 15 22 Blood Pressure 162/77 H 119/63 Pulse Oximetry 97 96 12/16/17 07:31 12/16/17 07:33 12/16/17 07:36 Temperature Pulse Rate 93 H 93 H Respiratory Rate Blood Pressure 123/73 Pulse Oximetry 94 L 12/16/17 08:00 12/16/17 11:25 Temperature 97.5 F L Pulse Rate 100 H 90 Respiratory Rate 18 16 Blood Pressure 140/67 Pulse Oximetry 96 Intake & Output 12/15/17 12/16/17 12/16/17 18:59 06:59 18:59 Intake Total 610 / 610 600 / 600 350 / 350 Output Total 600 / 600 Balance 610 / 610 0 / 0 350 / 350 Weight 73.7 kg Intake: IV 610 / 610 600 / 600 350 / 350 Azactam Inj 2 GM In NS Inj 100 100 / 100 200 / 200 100 / 100 ML @ 200 mls/hr IV.SIG Q8H WARNER Rx#:[id number] Levaquin 750 mg Premix Inj 150 150 / 150 ML @ 100 mls/hr IV.SIG Q24H WARNER Rx#:[id number] Sodium Phosphate Inj 30 MMOL In 260 / 260 NS Inj 250 ML @ 42 mls/hr IV. SIG UNSCH PRN Rx#:[id number] Vancomycin Inj 1,000 MG In NS 250 / 250 250 / 250 250 / 250 Inj 250 ML @ 250 mls/hr IV.SIG Q12H WARNER Rx#:[id number] Output: Urine 600 / 600 Other: # Voids 1 3 Date of Last Bowel Movement 12/15/17 12/15/17 12/15/17 Narrative: GENERAL: NAD, A&Ox3 HEAD: Normocephalic. NECK: Supple, trachea midline. No lymphadenopathy. EYES: No scleral icterus. No injection or drainage. CARDIOVASCULAR: Regular rate and rhythm without murmurs, gallops, or rubs. RESPIRATORY: Breath sounds equal bilaterally. No accessory muscle use. Wheezing bilaterally. GASTROINTESTINAL: Abdomen soft, non-tender, nondistended. MUSCULOSKELETAL: No cyanosis, or edema. SKIN: Warm and dry. NEURO: No focal neurological deficits. Results - Labs CBC & Chem 7: 12/15/17 04:25 12/15/17 04:25 Laboratory Results - last 24 hr 12/13/17 12/15/17 12/15/17 07:55 12:10 17:18 POC Glucose 115 H 128 H M. pneumoniae Interp . Mycoplasma pneumon IgG Negative Mycoplasma pneumon IgM Negative 12/15/17 12/16/17 21:04 08:12 POC Glucose 113 H 111 H M. pneumoniae Interp Mycoplasma pneumon IgG Mycoplasma pneumon IgM Microbiology 12/12/17 22:45 Blood - Peripheral Aerobic Blood Culture - Preliminary No growth in 4 days 12/12/17 22:45 Blood - Peripheral Anaerobic Blood Culture - Preliminary No growth in 4 days 12/12/17 22:50 Blood - Peripheral Aerobic Blood Culture - Preliminary No growth in 4 days 12/12/17 22:50 Blood - Peripheral Anaerobic Blood Culture - Preliminary No growth in 4 days 12/15/17 14:53 Sputum - Expectorated Sputum Gram Stain - Final 12/13/17 14:29 Clean Catch Urine Urine Culture - Final No growth in 48 hours Assessment and Plan - Plan 52-year-old female admitted secondary to pneumonia with hypoxia, likely COPD exacerbation Transition out of ICU today. Monitor for improvement. Community-acquired pneumonia COPD exacerbation Continue oxygen supplements as needed Schedule duo nebs When necessary albuterol Azithromycin Systemic steroids Follow for improvement in respiratory status Follow for improvement in exertional tolerance next Pulmonology following vancomycin, aztreonam and levofloxacin. Bipolar disorder NOS Depression chronic benzodiazepine use Fibromyalgia Allergic rhinitis Currently stable in regards to these conditions. Previously on hydroxyzine 25 mg 4 times daily as needed anxiety, Quetiapine 300 mg a.m., 600 mg p.m. daily for depression/bipolar disorder Holding meloxicam 15 mg daily Continue alprazolam 2 mg twice daily Cetirizine 5 mg daily for allergic rhinitis Essential hypertension Blood pressures currently controlled. On bisoprolol/hydrochlorothiazide 2.5/6.25 mg daily at home for hypertension. On furosemide 40 mg daily at home. Continue aspirin 81 mg daily With potassium chloride supplementation 20 mEq 2D echo Normal EF Hypoalbuminemia Continue regular diet Pantoprazole for GI prophylaxis Docusate sodium/senna 1 tablet twice daily for bowel regimen History of hysterectomy Hormone replacement therapy estropipate 1.5 mg daily Low TSH Low T3,T4 Mismatched findings Unreliable in setting of acute crisis and steroids Repeat studies tomorrow morning Polycythemia vera Microcytic anemia Leukocytosis Follow CBC Osteoporosis//arthritis holding alendronate 70 mg daily. PT continued Chronic hypokalemia Continue baseline potassium supplement 20 mEq daily DVT prophylaxis Heparin
[2017-12-16] MEDS: Carisoprodol 350 MG Tablet PO PRN (15:54)
--- NOTE | 2017-12-16 18:46 | P.PNPL ---
Subjective Interval history: 52 YOWF with Br Asthma, PCV Breathing much better Weaned to RA Has intermittent wheezing Sputum culture normal resp alexis has mild wheezing. Physical Exam Vital signs: Vital Signs 12/15/17 19:20 12/15/17 20:00 12/15/17 21:00 Temperature 99.0 F Pulse Rate 112 H 104 H 112 H Respiratory Rate 24 33 H Blood Pressure 162/77 H Pulse Oximetry 97 96 96 12/15/17 23:05 12/16/17 00:00 12/16/17 03:00 Temperature 99.0 F Pulse Rate 100 H 111 H 84 Respiratory Rate 19 22 15 Blood Pressure 162/77 H Pulse Oximetry 97 12/16/17 04:00 12/16/17 07:31 12/16/17 07:33 Temperature Pulse Rate 96 H 93 H Respiratory Rate 22 Blood Pressure 119/63 Pulse Oximetry 96 94 L 12/16/17 07:36 12/16/17 08:00 12/16/17 11:25 Temperature 97.5 F L Pulse Rate 93 H 100 H 90 Respiratory Rate 18 16 Blood Pressure 123/73 140/67 Pulse Oximetry 96 12/16/17 12:00 12/16/17 16:00 12/16/17 16:05 Temperature 98.3 F 98.5 F Pulse Rate 94 H 97 H 102 H Respiratory Rate 21 26 H 16 Blood Pressure 156/85 H 150/77 H Pulse Oximetry 95 91 L Intake & Output 12/15/17 12/16/17 12/16/17 18:59 06:59 18:59 Intake Total 610 / 610 600 / 600 350 / 350 Output Total 600 / 600 Balance 610 / 610 0 / 0 350 / 350 Weight 73.7 kg Intake: IV 610 / 610 600 / 600 350 / 350 Azactam Inj 2 GM In NS Inj 100 100 / 100 200 / 200 100 / 100 ML @ 200 mls/hr IV.SIG Q8H WARNER Rx#:[id number] Levaquin 750 mg Premix Inj 150 150 / 150 ML @ 100 mls/hr IV.SIG Q24H WARNER Rx#:[id number] Sodium Phosphate Inj 30 MMOL In 260 / 260 NS Inj 250 ML @ 42 mls/hr IV. SIG UNSCH PRN Rx#:[id number] Vancomycin Inj 1,000 MG In NS 250 / 250 250 / 250 250 / 250 Inj 250 ML @ 250 mls/hr IV.SIG Q12H WARNER Rx#:[id number] Output: Urine 600 / 600 Other: # Voids 1 3 Date of Last Bowel Movement 12/15/17 12/15/17 12/15/17 GENERAL: MWMWN,NAD SKIN: Warm and dry. HEAD: Normocephalic. EYES: No scleral icterus. No injection or drainage. NECK: Supple, trachea midline. No JVD or lymphadenopathy. CARDIOVASCULAR: Regular rate and rhythm without murmurs, gallops, or rubs. RESPIRATORY: Breath sounds equal bilaterally. No accessory muscle use. End exp rhonchi. GASTROINTESTINAL: Abdomen soft, non-tender, nondistended. MUSCULOSKELETAL: No cyanosis, or edema. BACK: Nontender without obvious deformity. No CVA tenderness. Assessment and Plan - Plan IMPRESSION: Br asthma exac Lung infilt PCV Pulm nodule PLAN: Cont Steroids Cont Abx Aerosol nebs Check sp culture Bedside PFTin AM
[2017-12-17] MEDS: Aztreonam Inj 2 GM in Sodium Chloride 0.9% Inj 100 ML IV.SIG SCH ×2 (00:08→08:01)
[2017-12-17] MEDS: Carisoprodol 350 MG Tablet PO PRN ×2 (00:09→08:25)
[2017-12-17] MEDS: Chlorhexidine Gluconate 2% 1 Pack (2 Cloths) TOPICAL SCH (04:02)
[2017-12-17] MEDS: MethylPREDNISolone Sod Succinate Inj 125 MG/2 ML Vial IV.PUSH SCH (05:27)
[2017-12-17 06:05] LABS: Baso % (Auto) 0.1 % (0.0-2.0); Eos % (Auto) 0.1 % (0.0-4.0); Hematocrit 32.2 % (35.0-46.0); Hemoglobin 10.1 gm/dL (11.6-15.3); Lymph # (Auto) 0.8 th/mm3 (1.0-4.8); Lymph % (Auto) 10.2 % (9.0-44.0); Mean Corpuscular HGB Conc 31.2 % (32.0-36.0); Mean Corpuscular Hemoglobin 24.5 pg (27.0-34.0); Mean Corpuscular Volume 78.6 fL (80.0-100.0); Mean Platelet Volume 10.4 fL (7.0-11.0); Mono # (Auto) 0.2 th/mm3 (0.0-0.9); Neut # (Auto) 7.1 th/mm3 (1.8-7.7); Neut % (Auto) 86.6 % (16.0-70.0); Platelet Count 198 th/mm3 (150-450); Red Cell Distribution Width 18.6 % (11.6-17.2); White Blood Count 8.1 th/mm3 (4.0-11.0)
[2017-12-17 06:22] LABS: Chloride 106 meq/L (98-107); Potassium 3.9 meq/L (3.5-5.1); Sodium 141 meq/L (136-145)
[2017-12-17] MEDS: Heparin - SQ 10,000 UNITS/ML Vial SQ SCH (06:30)
[2017-12-17 06:36] LABS: Calcium 8.1 mg/dL (8.5-10.1)
[2017-12-17 06:37] LABS: Anion Gap 8 meq/L (5-15); Blood Urea Nitrogen 19 mg/dL (7-18); Carbon Dioxide 26.7 meq/L (21.0-32.0); Glucose,Random 112 mg/dL (74-106)
[2017-12-17 06:40] LABS: Alanine Aminotransferase 19 U/L (10-53); Aspartate Aminotransferase 14 U/L (15-37); Glomerular Filtration Rate Greater Than 89 mL/min (>89)
[2017-12-17 06:41] LABS: Total Protein 6.1 g/dL (6.4-8.2)
[2017-12-17 06:42] LABS: Alkaline Phosphatase 63 U/L (45-117)
[2017-12-17 08:11] VITALS: O2SAT 96
[2017-12-17] MEDS: Furosemide 40 MG Tablet PO SCH (08:24)
[2017-12-17] MEDS: Senna/Docusate Sodium 8.6/50 MG Tablet PO SCH (08:25)
[2017-12-17] MEDS: guaiFENesin 600 MG ER Tablet PO SCH (08:25)
[2017-12-17] MEDS: Vancomycin Inj 1,000 MG in Sodium Chlor 0.9% Inj 250 ML IV.SIG SCH (08:25)
[2017-12-17] MEDS: Tiotropium Bromide 18 MCG/ACT Inhaler INH SCH (08:25)
[2017-12-17] MEDS: Budesonide-Formoterol 160/4.5 MCG 6 GM Inhaler INH SCH (08:25)
[2017-12-17 08:39] VITALS: BP 164/80; PULSE 88; RESP 18; TEMP 97.4
[2017-12-17 10:30] LABS: Free T4 (Free Thyroxine) 0.58 ng/dL (0.76-1.46)
--- NOTE | 2017-12-17 11:00 | P.DS ---
Date of admission: 12/13/17 01:07 Primary care physician: Emeka Ramos MD Brief History from admission: Patient was admitted to the ICU on 12/13/2017 secondary to pneumonia and hypoxia. See ICU documentation for H&P. DS: Medications - Discharge Medications Prescriptions: carisoprodol [Soma] 250 mg PO QID PRN #20 tab PRN Reason: Muscle Spasm Lactobacillus acidophilus 500 mmu cells PO TID #30 cap levofloxacin [Levaquin] 750 mg PO DAILY #7 tab prednisone 1 tab PO PER PKG DIR #1 ea tiotropium bromide [Spiriva with HandiHaler] 18 mcg INH DAILY #1 inh DS: Summary Hospital Course: Mrs. Nelson is a 52-year-old female. She has a past medical history of a recent diagnosis of COPD, this is based on chest x-ray and clinical history of 40 pack years of smoking. As an outpatient she was using albuterol for management of this. She is also working on quitting smoking. She came in secondary to acute respiratory distress. This was found to be secondary to pneumonia. Patient was treated with antibiotics and initially needed high flow oxygen in the ICU for troll of her hypoxia. Through time she has quickly improved. Continues to have wheezing which appears to be more related to her pneumonia than COPD at this point. She has been on room air for over 24 hours now and is able to ambulate without significant stress. At this point she is medically stable and cleared for discharge to home. Attenuation of antibiotics, prednisone taper, and Spiriva and albuterol are given his treatments at discharge. She will follow-up with pulmonology as an outpatient and pulmonary function testing is planned as an outpatient. - Time Spent with Patient Total time spent providing and/or coordinating discharge services: Less than 30 minutes - Quality: VTE Deep Vein Thrombosis/Pulmonary Embolism Present on Admission: No Exam Vital signs: Vital Signs 12/16/17 11:25 12/16/17 12:00 12/16/17 16:00 Temperature 98.3 F 98.5 F Pulse Rate 90 94 H 97 H Respiratory Rate 16 21 26 H Blood Pressure 156/85 H 150/77 H Pulse Oximetry 95 91 L 12/16/17 16:05 12/16/17 19:30 12/16/17 20:00 Temperature 98.3 F Pulse Rate 102 H 101 H 99 H Respiratory Rate 16 24 20 Blood Pressure 169/82 H Pulse Oximetry 98 98 12/16/17 23:05 12/17/17 00:00 12/17/17 00:39 Temperature 97.5 F L Pulse Rate 90 99 H Respiratory Rate 20 23 0 L Blood Pressure 141/70 H Pulse Oximetry 99 12/17/17 03:17 12/17/17 04:00 12/17/17 08:00 Temperature 97.6 F 97.4 F L Pulse Rate 88 89 88 Respiratory Rate 16 17 18 Blood Pressure 144/73 H 164/80 H Pulse Oximetry 99 96 Intake & Output 12/16/17 12/17/17 12/17/17 18:59 06:59 18:59 Intake Total 450 / 450 1220 / 1220 350 / 350 Balance 450 / 450 1220 / 1220 350 / 350 Weight 73.3 kg Intake: IV 450 / 450 500 / 500 350 / 350 Azactam Inj 2 GM In NS Inj 100 200 / 200 100 / 100 100 / 100 ML @ 200 mls/hr IV.SIG Q8H WARNER Rx#:[id number] Levaquin 750 mg Premix Inj 150 150 / 150 ML @ 100 mls/hr IV.SIG Q24H WARNER Rx#:[id number] Vancomycin Inj 1,000 MG In NS 250 / 250 250 / 250 250 / 250 Inj 250 ML @ 250 mls/hr IV.SIG Q12H WARNER Rx#:[id number] Oral 720 / 720 Other: # Voids 3 2 Date of Last Bowel Movement 12/15/17 12/15/17 # Bowel Movements 1 Results Procedures completed during hospitalization: High Flow O2 Labs on day of discharge: Labs from last 24 hours 12/17/17 12/17/17 12/17/17 04:25 04:25 04:25 CBC w Diff WBC RBC Hgb Hct MCV MCH MCHC RDW Plt Count MPV Neut % (Auto) Lymph % (Auto) [place] % (Auto) Eos % (Auto) Baso % (Auto) Neut # (Auto) Lymph # (Auto) [place] # (Auto) Eos # (Auto) Baso # (Auto) WBC Differential Diff Scan Differential Comment Sodium 141 Potassium 3.9 Chloride 106 Carbon Dioxide 26.7 Anion Gap 8 BUN 19 H Creatinine 0.49 L Estimated GFR Greater than 89 Random Glucose 112 H Calcium 8.1 L Total Bilirubin 0.3 AST 14 L ALT 19 Alkaline Phosphatase 63 Total Protein 6.1 L Albumin 3.0 L TSH 0.110 L Free T4 0.58 L Total T3 15 L IgE 12/17/17 12/13/17 04:25 07:55 CBC w Diff Slide review pending WBC 8.1 RBC 4.10 Hgb 10.1 L Hct 32.2 L MCV 78.6 L MCH 24.5 L MCHC 31.2 L RDW 18.6 H Plt Count 198 MPV 10.4 Neut % (Auto) 86.6 H Lymph % (Auto) 10.2 [place] % (Auto) 3.0 Eos % (Auto) 0.1 Baso % (Auto) 0.1 Neut # (Auto) 7.1 Lymph # (Auto) 0.8 L [place] # (Auto) 0.2 Eos # (Auto) 0.0 Baso # (Auto) 0.0 WBC Differential . Diff Scan Auto diff confirmed Differential Comment . Sodium Potassium Chloride Carbon Dioxide Anion Gap BUN Creatinine Estimated GFR Random Glucose Calcium Total Bilirubin AST ALT Alkaline Phosphatase Total Protein Albumin TSH Free T4 Total T3 IgE 8.6 Preliminary micro results at discharge 12/15/17 14:53 Sputum Culture - Preliminary Sputum - Expectorated Sputum Moderate growth normal respiratory alexis at 24 hours 12/12/17 22:45 Aerobic Blood Culture - Preliminary Blood - Peripheral No growth in 4 days Anaerobic Blood Culture - Preliminary No growth in 4 days 12/12/17 22:50 Aerobic Blood Culture - Preliminary Blood - Peripheral No growth in 4 days Anaerobic Blood Culture - Preliminary No growth in 4 days - Impressions ITS Impressions Chest CTA 12/12/17 23:19 CONCLUSION: 1. No pulmonary embolus. 2. Patchy pneumonia as described, largest and most conspicuous in the right middle lobe. 3. Mild to moderate emphysema. Chest X-Ray 12/15/17 06:00 CONCLUSION: Mild patchy left lung base opacity. Discharge Plan - Discharge Disposition Patient Disposition: 01 Discharge Home - Discharge Condition Condition: Stable - Discharge Order Discharge Orders: Discharge Order (Routine); Ordered 12/17/17 Ordered By: Jose Orellana - Discharge Details Anticipated Discharge Date: 12/17/17 - Physicians Team Primary Care Provider: Emeka Ramos Attending Provider: Jose Orellana Other Providers: Connie Akhtar MD ; Iraj Hernandez MD ; Rodrigo Jain MD ; Emeka Linton MD
== END 2017-12-17 10:35 | disposition home or self-care (01) ==
LOC: PHED 22:03 → PHEDA 12-13 01:07 → PH3 12-13 02:30 → PHICU 12-13 07:06
PROVIDERS: ADMIT Hospitalist; ATTEND Hospitalist